=== PATIENT | male | born 1975 | race Caucasian/White ===

== ENCOUNTER 2020-03-02 21:12 | Inpatient (IN) | payer BC, SELFPAY ==
[2020-03-02] VITALS (13 sets, daily range): BP systolic 101–159; BP diastolic 58–107; PULSE 81–123; RESP 16–22; TEMP 36.4; O2SAT 95–99; BMI 27.6
--- NOTE | 2020-03-02 | IR_ITS ---
APPROVED REPORT Patient Location: [facility] Trimmer: PALMER Acuna RT (R) PROCEDURES Left heart catheterization Left ventriculogram Selective coronary angiogram Thrombectomy to the proximal and mid dominant right coronary Drug-eluting stent deployment to the proximal right coronary INDICATION Acute ST elevation inferolateral myocardial infarction, Coronary artery disease Informed consent was obtained prior to the procedure. COMPLICATIONS NONE Estimated Blood Loss: LESS THAN 10 ML TECHNIQUE One percent lidocaine used to anesthetize the right anterior aspect of the wrist. The right radial artery was accessed via the Seldinger technique. A 6 [place] Citizen sheath was placed in the right radial artery. 2.5 mg of verapamil, 800 mcg of nitroglycerin, 1mg Lidocaine and 5000 U Heparin were given through the arterial sheath. A 6 [place] Citizen Poppa catheter was used to perform left heart catheterization left ventriculogram and selective coronary angiogram. Therapeutic heparin was already administered in the emergency department and the ACT was 239 seconds. Additional heparin was administered. The Poppa catheter was used to intubate the right coronary artery and a Choice PT wire was placed distally. A penumbFlockOfBirds aspiration catheter was used to aspirate a large thrombus. Following this a 3 mm x 22 mm resolute Chito stent was deployed at 24 forrest reducing the ruptured plaque to 0%. PHAN-3 flow was present before and after the procedure. At the end the procedure the apparatus was removed the sheath was removed good hemostasis was achieved using TR banding patient was transferred to the postop holding area stable condition. ANGIOGRAPHIC RESULTS The left main artery Has a distal 20% stenosis The left anterior descending artery Has proximal 10% stenoses mid vessel 20% stenoses the first diagonal artery has a proximal 30 to 40% tubular stenosis The circumflex artery Is a nondominant vessel approximately 2.25 mm in diameter with an ostial 40% stenosis and a mid vessel 50% stenosis at a 2 mm segment The right coronary artery Is a dominant vessel with ruptured plaque in the proximal to mid segment accompanied by 2 thrombi. Distal to the RV marginal are 30% stenoses which extend into the distal large branches The MARADIAGA ventriculogram reveals Preserved 55% The left ventricular end-diastolic pressure 15 mmHg IMPRESSION Acute inferolateral myocardial infarction with ST elevation secondary to ruptured plaque in the proximal right coronary artery accompanied by 2 thrombi Successful aspiration thrombectomy followed by drug-eluting stent to the proximal dominant right coronary Persistent moderate stenosis in the small nondominant circumflex artery Preserved ejection fraction Borderline elevated LVEDP PLAN 1. Brilinta and aspirin 2. Supportive care for the next 48 hours while maintaining telemetry 3. Echocardiogram 4. Avoidance of tobacco products 5. Risk factor modification 6. Cardiac rehabilitation Electronically signed by : Narayan Reyna, 03/02/2020 22:19:43
--- NOTE | 2020-03-02 21:07 | ECG_ITS ---
APPROVED REPORT Exam: Resting ECG HR:87 bpm ECG Measurements Heart Rate 87 AXES ID 114 P 43 QRSd 90 QRS 66 QT 362 T 71 QTc 435 Conclusion Normal sinus rhythm ST elevation, consider inferior injury or acute infarct ACUTE CO Abnormal ECG Electronically signed by : Rajendra Beck, 03/03/2020 19:45:34
--- NOTE | 2020-03-02 21:15 | XR_ITS ---
PROCEDURE: XR CHEST PORTABLE CLINICAL HISTORY: chest pain COMPARISON: No exams were available for comparison FINDINGS: The cardiomediastinal silhouette and pulmonary vascularity are within normal limits. The lungs are clear without infiltrates, suspicious nodules, or pleural effusions. No acute bony abnormalities. IMPRESSION: No acute findings. Dictated by: Mike Mccollum MD 03/03/2020 06:10 Mike Mccollum MD in [place] 03/03/2020 06:10
--- NOTE | 2020-03-02 21:17 | PC.NURSE ---
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
--- NOTE | 2020-03-02 21:19 | PC.NURSE ---
Dr Santos speaking with Dr Art
--- NOTE | 2020-03-02 21:22 | PC.NURSE ---
Dr Santos speaking with Dr Gregg for admission
[2020-03-02 21:23] LABS: Chloride 101 mmol/L (98-107); Potassium 3.8 mmoL/L (3.5-5.1); Sodium 139 mmol/L (136-145)
[2020-03-02 21:26] LABS: Anion Gap 13.8 mEq/L (5-15); Basophils # 0.4 K/mm3 (0-0.2); Blood Urea Nitrogen 18 mg/dl (9-20); Carbon Dioxide 28 mmol/L (22.0-30.0); Creatinine Clearance Estimated 91 mL/min (50-200); Eosinophils # 0.3 K/mm3 (0.0-0.4); Eosinophils % 1.5 % (0.1-12.0); Estimated Glomerular Filt Rate 60 ml/min (>60); GFR (African American) 73 ML/MIN (>60); Glucose 125 mg/dl (74-100); Lymphocytes # 2.2 K/mm3 (0.7-4.5); Lymphocytes % 11.7 % (10-50); MANUAL DIFFERENTIAL MANUAL DIFFERENTIAL (MANUAL DIFF); Mean Corpuscular HGB Conc 36.7 g/dL (31.8-35.4); Mean Corpuscular Hemoglobin 30.6 pg (27.0-31.2); Mean Corpuscular Volume 83.6 fl (80-94); Mean Platelet Volume 10.3 fl (7.4-10.4); Monocytes # 0.7 K/mm3 (0.1-1.0); Neutrophils # 14.9 K/mm3 (1.8-7.8); Neutrophils % 80.9 % (37.0-80.0); Platelet Count 276 K/mm3 (142-424); Red Blood Count 5.98 M/mm3 (4.60-6.20); Red Cell Distribution Width 15.4 % (11.5-17.5); White Blood Count 18.4 K/mm3 (4.8-10.8)
[2020-03-02 21:28] LABS: Hemoglobin 18.3 g/dL (14.1-18.0)
--- NOTE | 2020-03-02 21:31 | HMH.EDCP ---
ED Disposition Clinical Impression: ST elevation myocardial infarction (STEMI) Qualifiers: Involved coronary artery: unspecified coronary artery Qualified Code(s): I21.3 - ST elevation (STEMI) myocardial infarction of unspecified site Disposition: Admitted As Inpatient Condition on Discharge: Serious Referrals: Geo Art MD [Primary Care Provider] - - Critical Care Critical Care Time: No Attestation: On 03/02/20, the high probability of a clinically significant, sudden or life threatening deterioration of the following system(s) required my full and direct attention, intervention and personal management. The time I documented below is in addition to time spent performing reported procedures but includes the following listed in this critical care notation. Medical Decision Making - Medical Records Medical records reviewed: Yes: I reviewed the patient's medical records. - Albaro Inquiry Pt receiving controlled substance: No Vital Signs: 03/02/20 21:19 Temperature 97.6 F Temperature Source Oral Pulse Rate [Right] 90 Respiratory Rate 22 Blood Pressure [Right Arm] 159/107 H Blood Pressure Mean [Right Arm] 124 Blood Pressure Source [Right Arm] Automatic Cuff Blood Pressure Position [Right Arm] Supine 02 Sat by Pulse Oximetry 99 Oxygen Delivery Method Room Air - Lab Data Lab results reviewed: Yes: I reviewed the patient's lab results. Lab Results 03/02/20 21:15: WBC 18.4 H, RBC 5.98, Hgb 18.3 H*, Hct 50.0, MCV 83.6, MCH 30.6, MCHC 36.7 H, RDW 15.4, Plt Count 276, MPV 10.3, Neut % (Auto) 80.9 H, Lymph % (Auto) 11.7, Maury % (Auto) 4.0, Eos % (Auto) 1.5, Baso % (Auto) 2.0, Neut # (Auto) 14.9 H, Lymph # (Auto) 2.2, Maury # (Auto) 0.7, Eos # (Auto) 0.3, Baso # (Auto) 0.4 H 03/02/20 21:15: Sodium 139, Potassium 3.8, Chloride 101, Carbon Dioxide 28, Anion Gap 13.8, BUN 18, Creatinine 1.30 H, Estimated Creat Clear 91, Estimated GFR 60, Est GFR ( Amer) 73, Glucose 125 H, Calcium 10.0 Result diagrams: 03/02/20 21:15 01/06/21 21:15 Orders (Tests/Meds): ED MEDICATIONS Generic Name Dose Route Start Last Admin Trade Name Freq PRN Reason Stop Dose Admin Sodium Chloride 1,000 mls @ 999 mls/hr 03/02/20 21:15 03/02/20 21:17 Sod Chlor 0.9% 1000ml Bag IV 03/02/20 22:15 999 mls/hr .Q1H1M CHAR Administration Discontinued Medications Generic Name Dose Route Start Last Admin Trade Name Freq PRN Reason Stop Dose Admin Heparin Sodium (Porcine) 9,000 unit 03/02/20 21:14 03/02/20 21:17 Heparin Sodium 5,000 Unit/Ml Vial IV 03/02/20 21:15 9,000 unit ONCE ONE Administration Ticagrelor 180 mg 03/02/20 21:14 03/02/20 21:16 Ticagrelor 90mg Tablet PO 03/02/20 21:15 180 mg ONCE ONE Administration ORDERS Category Date Time Status XR chest portable Stat Exams 03/02/20 21:15 Taken Basic Metabolic Panel Stat Lab 03/02/20 21:15 Results Complete Blood Count Auto Diff Stat Lab 03/02/20 21:15 Results Troponin I Q3H Lab 03/03/20 00:30 Ordered Troponin I Q3H Lab 03/03/20 03:30 Ordered Troponin I Stat Lab 03/02/20 21:15 Results - Radiology Data #1 Image(s): Chest Image Reviewed: Yes I reviewed the patient's radiology image Preliminary Findings: Abnormal (nonspecific) - ECG Data Tracing #1 Normal Sinus Rhythm: Yes Ischemic changes: acute STEMI - Physician Consults Physician Consulted: romaine Reason -: Pt condition Additional Consult: philomena Reason -: Admission Medical Decision Narrative: acute stemi will go to slab puller - heparin and brilinta given Chest Pain HPI - General Chief Complaint: Chest Pain Stated Complaint: chest pain Time Seen by Provider: 03/02/20 21:20 Mode of Arrival: Ambulatory Source of Information: Patient, Spouse, Medical Record Limitations: No Limitations Description of Symptoms (Recalled from ER Triage Doc. by RN): Pt C/O bilateral chest pain started about 1930 tonight w/ soa and diaphoresis, STEMI Alert called
[2020-03-02 21:32] LABS: Lymphocytes % 13 % (10-50); Monocytes % 5 % (2-9); Neutrophils % 82 % (42-76); Platelet Estimate Normal; RBC Morphology Normal; Total Cells Counted 100
[2020-03-02 21:38] LABS: Troponin I 0.02 ng/ml (0.00-0.034)
--- NOTE | 2020-03-02 21:50 | PC.NURSE ---
Senior Manager Creative Services called and is ready for pt, pt has not had opportunity to speak with Senior Cyber Security Analyst, consent filled out but not signed at this time. Pt transported to Senior Manager Creative Services Via Stretcher with Zolls attached. Transported by Landscape Artist Delia Payne and Yash Kearney.
[2020-03-02 21:52] LABS: Coronavirus 19 IgG Antibody Negative (Negative); Coronavirus 19 IgM Antibody Negative (Negative)
--- NOTE | 2020-03-02 21:56 | PC.NURSE ---
[address] Reyna by Dr Santos and STEMI Alert called
--- NOTE | 2020-03-02 22:07 | PC.NURSE ---
on arrival pt states he has bilat chest pain with SOA and diaphoresis starting at 1930 [place] after karate practice and continued to get worse
[2020-03-02 22:44] LABS: CATHL Activated Clotting Time 236 SEC (74-125)
[2020-03-02 22:45] LABS: CATHL Activated Clotting Time 237 SEC (74-125)
--- NOTE | 2020-03-02 23:03 | PC.NURSE ---
pt arrived via stretcher from blood and plasma laboratory assistant
[2020-03-03] VITALS (16 sets, daily range): BP systolic 104–163; BP diastolic 65–97; PULSE 69–96; RESP 10–26; TEMP 36.6–36.8; O2SAT 94–99; BMI 27.6
--- NOTE | 2020-03-03 00:25 | PC.NURSE ---
He is A&Ox4 with some confusion r/t anesthesia. He denies pain. VSS. Radialband in place. Capillary refill <3. Positive radial and pedal pulses. He is on oxygen per request of Dr. Reyna per report from Speedy Clement RN. Pt came to floor with non-rebreather but requested that it be removed. He is currently on 2LPM n/c. His verified that he is not on any home medications and was present t/o admission.
--- NOTE | 2020-03-03 03:00 | PC.NURSE ---
Attempted to remove air from radial band and radial site started bleeding. Increased pressure placed on site and site has stopped bleeding.
[2020-03-03 06:25] LABS: Basophils # 0.1 K/mm3 (0-0.2); Basophils % 0.8 % (0.1-2.0); Eosinophils # 0.2 K/mm3 (0.0-0.4); Eosinophils % 2.1 % (0.1-12.0); Hematocrit 44.3 % (42.0-52.0); Lymphocytes # 3.3 K/mm3 (0.7-4.5); Lymphocytes % 31.4 % (10-50); Mean Corpuscular HGB Conc 32.4 g/dL (31.8-35.4); Mean Corpuscular Hemoglobin 28.5 pg (27.0-31.2); Mean Corpuscular Volume 87.8 fl (80-94); Mean Platelet Volume 7.2 fl (7.4-10.4); Monocytes # 0.7 K/mm3 (0.1-1.0); Monocytes % 6.6 % (1.7-9.3); Neutrophils # 6.3 K/mm3 (1.8-7.8); Neutrophils % 59.1 % (37.0-80.0); Platelet Count 224 K/mm3 (142-424); Red Blood Count 5.04 M/mm3 (4.60-6.20); Red Cell Distribution Width 13.5 % (11.5-17.5); White Blood Count 10.6 K/mm3 (4.8-10.8)
[2020-03-03 06:40] LABS: Anion Gap 8.8 mEq/L (5-15); Blood Urea Nitrogen 16 mg/dl (9-20); Carbon Dioxide 24 mmol/L (22.0-30.0); Chloride 108 mmol/L (98-107); Chol/HDL Ratio 6.8 (1-3.5); Cholesterol 176 mg/dl (140-200); Creatinine Clearance Estimated 118 mL/min (50-200); Estimated Glomerular Filt Rate 82 ml/min (>60); GFR (African American) 99 ML/MIN (>60); Glucose 124 mg/dl (74-100); HDL Cholesterol 26 mg/dl (40-60); Potassium 3.8 mmoL/L (3.5-5.1); Sodium 137 mmol/L (136-145); Triglycerides 262 mg/dl (30-150); VLDL Cholesterol 52 mg/dL (0-40)
[2020-03-03 06:43] LABS: Calcium 8.5 mg/dl (8.4-10.2)
[2020-03-03 06:54] LABS: Hemoglobin 14.4 g/dL (14.1-18.0)
--- NOTE | 2020-03-03 07:49 | HMH.CNCARD ---
History of Present Illness Consult date: 03/03/20 Requesting physician: Geo Art Consult reason: chest pain Chief complaint: STEMI Additional Medical History:: 1. Coronary artery disease A. History of myocardial infarction, status post coronary stenting, age 36, Dr. Garcia, [place], [place] B. Inferior STEMI, status post thrombectomy and coronary stenting of the right coronary artery, 03/02/2020, Dr. Narayan Reyna, [place], [place]. ANGIOGRAPHIC RESULTS The left main artery Has a distal 20% stenosis The left anterior descending artery Has proximal 10% stenoses mid vessel 20% stenoses the first diagonal artery has a proximal 30 to 40% tubular stenosis The circumflex artery Is a nondominant vessel approximately 2.25 mm in diameter with an ostial 40% stenosis and a mid vessel 50% stenosis at a 2 mm segment The right coronary artery Is a dominant vessel with ruptured plaque in the proximal to mid segment accompanied by 2 thrombi. Distal to the RV marginal are 30% stenoses which extend into the distal large branches The MARADIAGA ventriculogram reveals Preserved 55% The left ventricular end-diastolic pressure 15 mmHg IMPRESSION Acute inferolateral myocardial infarction with ST elevation secondary to ruptured plaque in the proximal right coronary artery accompanied by 2 thrombi Successful aspiration thrombectomy followed by drug-eluting stent to the proximal dominant right coronary Persistent moderate stenosis in the small nondominant circumflex artery Preserved ejection fraction Borderline elevated LVEDP 2. History of hypertension 3. Hyperlipidemia 4. Remote tobacco use, discontinued 1 year ago, previously 1.5 to 2 packs/day since age 15 5. History of GERD History of present illness: 44-year-old white male with history of prior MT was at [employer] [facility] last evening when he developed sudden chest discomfort that would not resolve with rest. Symptoms persisted upon returning home which prompted him to come to the ER for evaluation. EKG showed elevated ST segments inferiorly patient was taken urgently to the cardiac Instructional Design Technologist with subsequent thrombectomy and coronary stenting to the right coronary artery. This a.m. patient denies any chest pain, pressure or tightness. He denies tobacco use or illegal drug use. No history of diabetes or family history of early coronary artery disease. He relates he is on no medication except an aspirin when he can remember to take it. [facility] History Medical History: Reports:: Coronary Artery Disease, Gastroesophageal Reflux Disease(GERD), Hyperlipidemia, Hypertension, Myocardial Infarction Denies:: Cancer, Diabetes Mellitus Type 1, Diabetes Mellitus Type 2, Internal Pacemaker, MRSA *Have you ever received a pneumonia vaccine?: No *Have you received a flu vaccine this season?: No Other Surgeries: Yes: Coronary Stent. No: Pacemaker Amputation: No Fractures: No - *Social History Last grade of school completed: Some college Smoking Status: Former smoker Tobacco Type: cigarettes # Packs/Day (cigarettes): 2 #Yrs smoked (if former smoker): 28 Alcohol Intake: never *Occupational Status:: employed Housing: house Household Members: spouse *Travel in the last 8 weeks: None Family Hx:: Coronary Artery Disease, Thyroid Disorder, Alcoholism Meds Home Medications Medication Instructions Recorded Confirmed Type No Known Home Medications 03/02/20 03/02/20 History Allergies Allergy/AdvReac Type Severity Reaction Status Date / Time No Known Allergies Allergy Verified 03/02/20 23:13 Exam Vital signs and Labs for Last 24 Hours: Temp Pulse Resp BP Pulse Ox 98.0 F 96 H 16 163/84 H 98 03/03/20 04:00 03/03/20 04:00 03/03/20 02:40 03/03/20 04:00 03/03/20 04:00 Laboratory Results - last 24 hr 03/02/20 21:15: WBC 18.4 H, RBC 5.98, Hgb 18.3 H*, Hct 50.0, MCV 83.6, MCH 30.6, MCHC 36.7 H, RDW 15.4, Plt Count 276, MPV 10.3, Neut % (Au
--- NOTE | 2020-03-03 07:52 | HMH.PHAVTE ---
[facility] Pharmacy VTE Monitoring - Patient Demographics Admission date: 03/02/20 Report Date: 03/03/20 Time: 07:52 Allergies/Adverse Reactions: Patient Allergies No Known Allergies Allergy (Verified 03/02/20 23:13) Height: 1.78 m Weight: 87.543 kg Patient Problems: Current Active Problems ST elevation myocardial infarction (STEMI) (Acute) - VTE Risk Labs: VTE Related Lab Results Hgb 14.4 g/dL (14.1-18.0) D 03/03/20 05:56 Hct 44.3 % (42.0-52.0) 03/03/20 05:56 Plt Count 224 K/mm3 (142-424) 03/03/20 05:56 BUN 16 mg/dl (9-20) 03/03/20 05:56 Creatinine 1.00 mg/dl (0.66-1.25) D 03/03/20 05:56 Estimated Creat Clear 118 mL/min (50-200) 03/03/20 05:56 Was VTE Risk Assessment Performed: No VTE Score: 2 VTE Risk Level: Very Low Risk - Prophylaxis VTE Prophylaxis Ordered?: Yes Types of VTE Prophylaxis: TEDS Knee High Location of Applied Device: Bilateral Lower Extremeties
--- NOTE | 2020-03-03 08:00 | CA_ITS ---
APPROVED REPORT EXAM: Comprehensive 2D, Doppler, and color-flow Echocardiogram Client Support Consultant: Dominique Goodwin RVT Ht: 5 ft 10 in Wt: 193lbs BSA: 2.06 BP: 159/107 mmHg Indications: CP,STEMI,CAD,GERD,HTN,HLD 2D Dimensions LVOT 2.13 cm (M/F) 1.5-2.5 M-Mode Dimensions RVDd 2.14 cm (0.9-2.6) LA Diam 3.57 cm (1.9-4.0) LVDd 4.64 cm (3.5-5.7) Ao Diam 2.81 cm (2.0-3.7) LVDs 3.60 cm (3.5-5.7) IVSd 1.64 cm (0.6-1.1) PWd 1.11 cm (0.6-1.1) EF (Teich) 53.80% FS 27.90% EDV (Teich) 117.70 mL ESV (Teich) 54.40 mL LV Diastology E Decel Time 150.00 (160-240 msec) E/A Ratio 0.6 MED E' 7.20 (< 7 cm/sec) E'/MED E' Ratio 6.89 (>14) LAT E' 6.60 (<10 cm/sec) E/LAT E' Ratio 7.52 (>14) Mitral Valve MV E Max Preston. 50.00 (40-130 cm/s) MV A Velocity 78.00 (40-130 cm/s) E/A Ratio 0.64 MV Decel. Time 150.00 (160-240 ms) MV PHT 44.00 ms Pulmonary Valve PV Peak Velocity 87.00 (50-150 cm/s) Left Ventricle Left atrium is mildly enlarged, left ventricle is normal size, mild concentric left ventricular hypertrophy, visually estimated ejection fraction 45 to 50%, there is mild hypokinesis involving the basal septum and inferior wall. Diastolic parameters are inconclusive. Right Ventricle Right atrium and right ventricle are normal size and contractility. Aortic Valve Aortic valve is minimally thickened and calcified, there is no aortic stenosis or aortic insufficiency. Mitral Valve Mitral valve is grossly normal, there is mild mitral regurgitation. Tricuspid Valve Tricuspid valve is grossly normal, there is mild tricuspid regurgitation, tricuspid regurgitation jet velocity is inadequate for calculation of the right ventricular systolic pressure. Pulmonic Valve Pulmonic valve is poorly visualized. Great Vessels Aortic root is normal size. Pericardium No significant pericardial effusion noted. Conclusion 1. Mildly enlarged left atrium, normal left ventricular size, mild concentric left ventricular hypertrophy, visually estimated ejection fraction 40 to 45% with segmental wall motion abnormality described above, diastolic parameters are inconclusive. 2. Mild mitral and tricuspid regurgitation. 3. No significant pericardial effusion noted. Electronically signed by : Dakota Agrawal, 03/03/2020 15:03:32
--- NOTE | 2020-03-03 08:52 | HMH.HP ---
*Admission Date: 03/02/20 *Chief complaint: chest pain *History of present illness: Mr Penny is a 44-year-old white male with history of prior MN with 1 stent placed back [place] [address] Garcia. He was at [employer] [facility] last evening when he developed sudden chest discomfort that would not resolve with rest. He states it felt like something was squeezing the lower part of his chest and he had some pain that radiated into her bilateral gums. His pain did not resolve and was similar to the pain he had with his last MN, therefore he came to the ER for evaluation. EKG showed elevated ST segments inferiorly and the patient was taken urgently to the cardiac Concrete Spreader with subsequent thrombectomy and coronary stenting to the right coronary artery. This morning he denies any chest pain, pressure or tightness. He states he quit smoking about a year ago. He has no history of diabetes but he did say that his mother had coronary artery disease. He used to be on 5 medications after his last MN, but it has been at least a year and a half since he has taken any of them. When Dr. Garcia left, he no longer followed up in his office. He does take a full-strength aspirin daily. [facility] History I have reviewed the patient's past medical history: Yes Medical History: Reports:: Coronary Artery Disease, Gastroesophageal Reflux Disease(GERD), Hyperlipidemia, Hypertension, Myocardial Infarction Denies:: Cancer, Diabetes Mellitus Type 1, Diabetes Mellitus Type 2, Internal Pacemaker, MRSA *Have you ever received a pneumonia vaccine?: No *Have you received a flu vaccine this season?: No Other Surgeries: Yes: Coronary Stent. No: Pacemaker Amputation: No Fractures: No - *Social History Last grade of school completed: Some college Smoking Status: Former smoker Tobacco Type: cigarettes # Packs/Day (cigarettes): 2 #Yrs smoked (if former smoker): 28 Alcohol Intake: never *Occupational Status:: employed Housing: house Household Members: spouse *Travel in the last 8 weeks: None Family Hx:: Coronary Artery Disease, Thyroid Disorder, Alcoholism Review of Systems - Constitutional Denies fever(s) - Eyes Denies blurry vision, Denies double vision - ENT Denies nasal congestion, Denies sore throat - *Cardiovascular Reports chest pain, Reports shortness of breath, Reports radiating jaw, neck or arm pain - *Respiratory Denies cough, Denies shortness of breath - *Gastrointestinal Reports nausea, Denies abdominal pain, Denies loose stools, Denies vomiting - *Genitourinary Denies difficulty urinating, Denies painful urination - *Musculoskeletal Denies joint pain - *Neurologic Denies headache(s), Denies weakness Meds Home Medications Medication Instructions Recorded Confirmed Type No Known Home Medications 03/02/20 03/02/20 History Allergies Allergy/AdvReac Type Severity Reaction Status Date / Time No Known Allergies Allergy Verified 03/02/20 23:13 Exam Vital signs and Labs for Last 24 Hours: Temp Pulse Resp BP Pulse Ox 98.0 F 96 H 16 163/84 H 98 03/03/20 04:00 03/03/20 04:00 03/03/20 02:40 03/03/20 04:00 03/03/20 04:00 Laboratory Results - last 24 hr 03/02/20 21:15: WBC 18.4 H, RBC 5.98, Hgb 18.3 H*, Hct 50.0, MCV 83.6, MCH 30.6, MCHC 36.7 H, RDW 15.4, Plt Count 276, MPV 10.3, Neut % (Auto) 80.9 H, Lymph % (Auto) 11.7, [place] % (Auto) 4.0, Eos % (Auto) 1.5, Baso % (Auto) 2.0, Neut # (Auto) 14.9 H, Lymph # (Auto) 2.2, [place] # (Auto) 0.7, Eos # (Auto) 0.3, Baso # (Auto) 0.4 H, Total Counted 100, Neutrophils % (Manual) 82 H, Lymphocytes % (Manual) 13, Monocytes % (Manual) 5, Platelet Estimate Normal, RBC Morphology Normal 03/02/20 21:15: Sodium 139, Potassium 3.8, Chloride 101, Carbon Dioxide 28, Anion Gap 13.8, BUN 18, Creatinine 1.30 H, Estimated Creat Clear 91, Estimated GFR 60, Est GFR ( Amer) 73, Glucose 125 H, Calcium 10.0, Troponin I 0.02 03/02/20 21:15: SARS-CoV-2 IgG Ab (Rapid) Negative, SARS-CoV-2 IgM Ab (Rapi
[2020-03-04] VITALS (10 sets, daily range): BP systolic 102–132; BP diastolic 69–85; PULSE 60–79; RESP 14–20; TEMP 36.4–36.7; O2SAT 93–98; BMI 28.8
--- NOTE | 2020-03-04 04:18 | PC.NURSE ---
Pt has rested off an on this shift. C/o some epigastric pain earlier in the shift, medicated per APR with Lortab, no further complaints. Right radial site dressing remains C/D/I. No bruising noted. LS CTA, denies CP or SOA. Has remained on RA all night. BS+x4. Pt up to bathroom to void without difficulty, no BM noted this shift. VSS, remains NSR on telemetry, will continue to monitor.
--- NOTE | 2020-03-04 08:38 | HMH.PNCARD ---
Subjective Date: 03/04/20 Time: 08:38 Principal diagnosis: STEMI Interval history: 44-year-old white male in bed in no acute distress. Epigastric discomfort during the night that resolved with Lortab. He does have some improving discomfort of the right wrist and hand. Exam Vital signs and Labs for Last 24 Hours: Temp Pulse Resp BP Pulse Ox 97.9 F 67 14 111/69 94 L 03/04/20 04:00 03/04/20 06:00 03/04/20 06:00 03/04/20 06:00 03/04/20 06:00 I & O for Last 24 hours: Intake & Output 03/01/20 03/02/20 03/03/20 03/04/20 11:59 11:59 11:59 11:59 Intake Total 1653 / 1653 795 / 795 Output Total 800 / 800 Balance 1653 / 1653 -5 / -5 Weight 192 lb 15.988 oz 201 lb 8 oz - Constitutional no acute distress - *Routine HEENT Exam Head: Present: normocephalic Eye: Present: EOMI, PERRL ENT: Present: mucous membranes moist - *Routine Neck Exam Present: supple. Absent: lymphadenopathy - *Routine Respiratory Exam Present: CTA bilaterally - *Routine Cardiovascular Exam Present: RRR - *Routine Abdominal Exam Present: soft, normoactive bowel sounds. Absent: tenderness - *Routine Extremities Exam Absent: cyanosis, clubbing, edema - *Routine Skin Exam Present: warm. Absent: rash - *Routine Neurological Exam Present: alert, oriented X3 Progress Note: A&P (1) ST elevation myocardial infarction (STEMI) Status: Acute (2) Hypertension Status: Acute (3) Hyperlipidemia Status: Acute (4) Ex-smoker for less than 1 year Status: Acute Assessment and Plan for All Diagnoses:: Patient comfortable at this time. Encouraged him to ambulate today and if no further discomfort could be discharged home later this evening. Home medication recommendations Aspirin 81 mg daily Brilinta 90 mg twice daily Metoprolol succinate XL 25 mg daily Lisinopril 10 mg daily Atorvastatin 80 mg daily Nitroglycerin sublingual as needed for possible coronary spasm related to coronary stenting. Follow-up in our office in 1 week Patient should be off work for at least 2 weeks before consideration to return to work.
--- NOTE | 2020-03-04 08:43 | HMH.ACPN2 ---
Internal Medicine - PN: Subj *Date: 03/04/20 *Time: 08:43 Interval history: Patient is feeling well this morning. He states he did have an episode around 2 or 3 AM of some chest pressure. He was given Lortab and it subsided and he fell asleep. He denies any pain or pressure this morning. He is able to eat. Exam Vital signs and Labs for Last 24 Hours: Temp Pulse Resp BP Pulse Ox 98.1 F 79 20 109/72 L 95 03/04/20 08:00 03/04/20 08:00 03/04/20 08:00 03/04/20 08:00 03/04/20 08:00 I & O for Last 24 hours: Intake & Output 03/01/20 03/02/20 03/03/20 03/04/20 11:59 11:59 11:59 11:59 Intake Total 1653 / 1653 795 / 795 Output Total 800 / 800 Balance 1653 / 1653 -5 / -5 Weight 192 lb 15.988 oz 201 lb 8 oz - Constitutional no acute distress - *Routine Respiratory Exam Present: CTA bilaterally - *Routine Cardiovascular Exam Present: RRR - *Routine Abdominal Exam Present: soft, normoactive bowel sounds. Absent: tenderness - *Routine Extremities Exam Absent: cyanosis, clubbing, edema - *Routine Skin Exam Present: warm. Absent: rash - *Routine Neurological Exam Present: alert, oriented X3 Assessment and Plan (1) ST elevation myocardial infarction (STEMI) Status: Acute Qualifiers: Qualified Code(s): I21.3 - ST elevation (STEMI) myocardial infarction of unspecified site Category: Medical Code(s): I21.3 - ST elevation (STEMI) myocardial infarction of unspecified site (2) Hypertension Status: Acute Category: Medical Code(s): I10 - Essential (primary) hypertension (3) Hyperlipidemia Status: Acute Category: Medical Code(s): E78.5 - Hyperlipidemia, unspecified (4) Ex-smoker for less than 1 year Status: Acute Category: Social Hx Code(s): Z78.9 - Other specified health status - Assessment and plan all Dx Assessment and Plan for all problems:: Cardiology has seen the patient this morning. He should be able to be discharged later on today as they wanted to keep him for 48 hours of monitoring. He will need to follow-up in their office.
--- NOTE | 2020-03-04 20:16 | PC.NURSE ---
PT IS RESTING IN BED. NO COMPLAINTS OF DISCOMFORT. PT HAS BEEN WAITING PATIENTLY TO GET DISCHARGED. PT HAS UNHOOKED HIMSELF FROM THE MONITORS SEVERAL TIMES THIS SHIFT TO GET UP AND AMBULATE IN THE ROOM. ALERT AND ORIENTED X4. VSS. EATING AND DRINKING WELL. LUNG SOUNDS CLEAR. BOWEL SOUNDS NORMAL. ABDOMEN SOFT/NON TENDER. DRESSING TO THE RT RADIAL SITE C/D/I. REPORT HANDOFF TO IDANIA CROWLEY RN.
--- NOTE | 2020-03-04 20:28 | PC.NURSE ---
patient discharged and off the floor at 20:24.
--- NOTE | 2020-03-05 19:19 | HMH.DCSUM ---
General - General Admission date:: 03/02/20 Discharge date: 03/04/20 HPI HPI: Mr Chambres is a 44-year-old white male with history of prior AK with 1 stent placed back in [address] Garcia. He was at [facility] last evening when he developed sudden chest discomfort that would not resolve with rest. He states it felt like something was squeezing the lower part of his chest and he had some pain that radiated into her bilateral gums. His pain did not resolve and was similar to the pain he had with his last AK, therefore he came to the ER for evaluation. EKG showed elevated ST segments inferiorly and the patient was taken urgently to the cardiac [facility] with subsequent thrombectomy and coronary stenting to the right coronary artery. This morning he denies any chest pain, pressure or tightness. He states he quit smoking about a year ago. He has no history of diabetes but he did say that his mother had coronary artery disease. He used to be on 5 medications after his last AK, but it has been at least a year and a half since he has taken any of them. When Dr. Garcia left, he no longer followed up in his office. He does take a full-strength aspirin daily. Hospital Course Hospital Course: The patient was kept for monitoring after his stenting for [address] Gregg did discuss the importance with he and his of taking his medications and following up in the office. He had an echo showing an EF of 40 to 45%. His chest pain did improve after his cath, however he had some epigastric discomfort that resolved with Lortab the night after the cath. He also complained of some discomfort in his wrist. Cardiology did provide subingual nitroglycerin as needed for possible coronary spasm. They felt he was stable to be discharged home on 81 mg of aspirin, 90 mg of Brilinta twice daily, metoprolol succinate 25 daily, lisinopril 10 mg daily, and atorvastatin 80 mg daily. They wanted him to remain off work for 2 weeks and follow-up in their office in 1 week. Objective Vital signs: Temp Pulse Resp BP Pulse Ox 98.1 F 68 18 132/85 98 03/04/20 18:00 03/04/20 18:00 03/04/20 18:00 03/04/20 18:00 03/04/20 18:00 Narrative: - Constitutional no acute distress - *Routine HEENT Exam Head: Present: normocephalic Eye: Present: EOMI, PERRL ENT: Present: mucous membranes moist - *Routine Neck Exam Present: supple. Absent: lymphadenopathy - *Routine Respiratory Exam Present: CTA bilaterally - *Routine Cardiovascular Exam Present: RRR - *Routine Abdominal Exam Present: soft, normoactive bowel sounds. Absent: tenderness - *Routine Extremities Exam Absent: cyanosis, clubbing, edema - *Routine Skin Exam Present: warm. Absent: rash - *Routine Neurological Exam Present: alert, oriented X3 DS: Diagnosis - Discharge Diagnosis (1) ST elevation myocardial infarction (STEMI) Status: Acute (2) Hypertension Status: Acute (3) Hyperlipidemia Status: Acute (4) Ex-smoker for less than 1 year Status: Acute Discharge Plan - Patient Discharge Instructions ACTIVITY: Limited activity DIET: low fat, low cholesterol Patient Instructions: DI for Heart Attack, Heart Attack, Cardiac Catheterization - Follow up Plan Follow up with: Geo Art MD [Primary Care Provider] - 03/09/20 Narayan Reyna MD [Staff Physician] - 1 week Disposition: Home, Self-Longterm Medications: Home Medications Medication Instructions Recorded Confirmed Type Aspirin [Aspirin 81mg chewable 81 mg PO DAILY tab.chew 03/04/20 Rx tab] Atorvastatin Calcium [Lipitor 40mg 80 mg PO HS #30 tab 03/04/20 Rx Tablet*] Metoprolol Succinate [Toprol XL 25 mg PO DAILY #30 tab.er.24h 03/04/20 Rx 25mg tablet] Ticagrelor [Brilinta 90mg 90 mg PO BID #60 tab 03/04/20 Rx Tablet] lisinopriL [Zestril 10mg Tab] 10 mg PO DAILY #30 tab 03/04/20 Rx Prescriptions/Medication Reconci
--- NOTE | 2020-03-08 11:33 | HMH.PHACLD ---
Vishal Chambers has received discharge medication counseling on the following medications: PATIENT DISCHARGED ON ASPIRIN 81 MG DAILY, ATORVASTATIN 80 MG HS, LISINOPRIL 10 MG DAILY, METOPROLOL SUCCINATE 25 MG DAILY AND BRINLINTA 90 MG BID.
== END 2020-03-04 20:20 | disposition home or self-care (01) | DRG 247 ==
LOC: ER 21:37 → CATHLAB 22:13 → 2ND 22:19
PROVIDERS: Internal Medicine; Admitting Provider Family Medicine; Emergency Provider Emergency Medicine; PCP Family Medicine; Visit Provider Family Medicine
PROC: 027034Z Dilation of Coronary Artery, One Artery with Drug-eluting Intraluminal Device, Percutaneous Approach (ICD-10-PCS; principal; 2020-03-02 21:30)
DX: I21.19 ST elevation (STEMI) myocardial infarction involving other coronary artery of inferior wall (principal); I10 Essential (primary) hypertension; I25.10 Atherosclerotic heart disease of native coronary artery without angina pectoris; Z87.891 Personal history of nicotine dependence; I25.2 Old myocardial infarction; Z95.5 Presence of coronary angioplasty implant and graft; Z79.899 Other long term (current) drug therapy
CPT/HCPCS: 71045; 80048; 80061; 83735; 84484; 85007; 85025; 85347; 86328; 92941; 93005; 93306; 93458; 96365; 96375; 99152; 99153; 99284; C1725; C1769; C1876; C9606; J1644; J2405; Q9967

== ENCOUNTER → 2020-03-08 12:18 | Outpatient (CLI) | payer BC, SELFPAY ==
[2020-03-08 13:16] LABS: Basophils # 0.1 K/mm3 (0-0.2); Basophils % 1.2 % (0.1-2.0); Eosinophils # 0.2 K/mm3 (0.0-0.4); Eosinophils % 2.3 % (0.1-12.0); Hematocrit 56.8 % (42.0-52.0); Lymphocytes # 3.3 K/mm3 (0.7-4.5); Lymphocytes % 33.4 % (10-50); Mean Corpuscular HGB Conc 33.8 g/dL (31.8-35.4); Mean Corpuscular Hemoglobin 30.5 pg (27.0-31.2); Mean Corpuscular Volume 90.4 fl (80-94); Mean Platelet Volume 7.4 fl (7.4-10.4); Monocytes # 0.6 K/mm3 (0.1-1.0); Monocytes % 5.5 % (1.7-9.3); Neutrophils # 5.8 K/mm3 (1.8-7.8); Neutrophils % 57.7 % (37.0-80.0); Platelet Count 278 K/mm3 (142-424); Red Blood Count 6.29 M/mm3 (4.60-6.20); Red Cell Distribution Width 14.1 % (11.5-17.5)
[2020-03-08 13:18] LABS: Hemoglobin 19.2 g/dL (14.1-18.0)
[2020-03-08 14:10] LABS: Chloride 101 mmol/L (98-107); Potassium 4.4 mmoL/L (3.5-5.1); Sodium 138 mmol/L (136-145)
[2020-03-08 14:13] LABS: Anion Gap 15.4 mEq/L (5-15); Blood Urea Nitrogen 20 mg/dl (9-20); Calcium 9.9 mg/dl (8.4-10.2); Carbon Dioxide 26 mmol/L (22.0-30.0); Estimated Glomerular Filt Rate 66 ml/min (>60); GFR (African American) 80 ML/MIN (>60); Glucose 111 mg/dl (74-100)
== END ==
PROVIDERS: PCP Emergency Medicine; Visit Provider Emergency Medicine
DX: D75.1 Secondary polycythemia (principal)
CPT/HCPCS: 36415; 80048; 85025

== ENCOUNTER 2020-03-08 14:18 | Outpatient (CLI) | payer BC, SELFPAY ==
[2020-03-08 15:00] VITALS: BP 120/78; PULSE 71; RESP 20; TEMP 36.9; O2SAT 95
--- NOTE | 2020-03-08 15:27 | PC.NURSE ---
PT WAS HERE TODAY FOR FOLLOW UP WITH MD IN CARDIOLOGY CLINIC. LABS WERE CHECKED AND HGB WAS ELEVATED AND PATIENT WAS SENT TO OUR DEPARTMENT FOR THERAPUTIC PHLEBOTOMY
== END 2020-03-08 15:15 | disposition home or self-care (01) ==
LOC: INF 14:18
PROVIDERS: PCP Family Medicine; Visit Provider Physician Assistant
DX: D75.1 Secondary polycythemia (principal)
CPT/HCPCS: 99195

== ENCOUNTER → 2020-03-11 15:14 | Outpatient (CLI) | payer BC, SELFPAY ==
--- NOTE | 2020-03-11 15:14 | US_ITS ---
PROCEDURE: US KIDNEY CLINICAL INDICATION: D75.1 - Secondary polycythemia Polycythemia COMPARISON: No exams were available for comparison FINDINGS: The right kidney is 12 x 6 x the 6 cm. There is a 3 cm cyst in the mid polar region of the right kidney. No hydronephrosis. No other significant anomalies. The left kidney is normal at 11 x 6 by 5 cm. No hydronephrosis. Borderline splenomegaly at 13 cm IMPRESSION: Right renal cyst otherwise negative bilateral renal ultrasound. Dictated by: Mike Mccollum MD 03/11/2020 16:31 Mike Mccollum MD in [place] 03/11/2020 16:31
== END ==
PROVIDERS: PCP Family Medicine; Visit Provider Physician Assistant
DX: D75.1 Secondary polycythemia (principal); E78.5 Hyperlipidemia, unspecified; I10 Essential (primary) hypertension
CPT/HCPCS: 76770

== ENCOUNTER → 2020-03-15 14:24 | Outpatient (CLI) | payer BC, SELFPAY ==
[2020-03-15 14:54] LABS: Basophils # 0.1 K/mm3 (0-0.2); Eosinophils # 0.2 K/mm3 (0.0-0.4); Eosinophils % 1.7 % (0.1-12.0); Hematocrit 51.1 % (42.0-52.0); Hemoglobin 17.7 g/dL (14.1-18.0); Lymphocytes # 2.8 K/mm3 (0.7-4.5); Lymphocytes % 22.8 % (10-50); Mean Corpuscular HGB Conc 34.6 g/dL (31.8-35.4); Mean Corpuscular Hemoglobin 30.7 pg (27.0-31.2); Mean Corpuscular Volume 88.7 fl (80-94); Mean Platelet Volume 7.3 fl (7.4-10.4); Monocytes # 0.7 K/mm3 (0.1-1.0); Monocytes % 5.8 % (1.7-9.3); Neutrophils # 8.6 K/mm3 (1.8-7.8); Neutrophils % 68.8 % (37.0-80.0); Platelet Count 293 K/mm3 (142-424); Red Blood Count 5.76 M/mm3 (4.60-6.20); Red Cell Distribution Width 14.1 % (11.5-17.5); White Blood Count 12.4 K/mm3 (4.8-10.8)
[2020-03-15 15:57] LABS: Chloride 101 mmol/L (98-107); Sodium 136 mmol/L (136-145)
[2020-03-15 15:58] LABS: Potassium 4.9 mmoL/L (3.5-5.1)
[2020-03-15 16:00] LABS: Alanine Aminotransferase 53 U/L (12-78); Alkaline Phosphatase 86 U/L (38-126); Anion Gap 12.9 mEq/L (5-15); Aspartate Amino Transferase 34 U/L (17-59); Bilirubin,Direct 0.3 mg/dl (0.0-0.4); Bilirubin,Indirect 0.5 mg/dL (0.0-0.9); Bilirubin,Total 0.8 mg/dl (0.2-1.3); Bilirubin,Unconjugated 0.5 mg/dL (0.0-1.1); Blood Urea Nitrogen 14 mg/dl (9-20); Calcium 9.8 mg/dl (8.4-10.2); Carbon Dioxide 27 mmol/L (22.0-30.0); Cholesterol 140 mg/dl (140-200); Estimated Glomerular Filt Rate 82 ml/min (>60); GFR (African American) 99 ML/MIN (>60); Glucose 99 mg/dl (74-100); Triglycerides 134 mg/dl (30-150); VLDL Cholesterol 27 mg/dL (0-40)
[2020-03-15 16:01] LABS: Albumin Level 4.8 g/dl (3.5-5.0); Chol/HDL Ratio 3.9 (1-3.5); HDL Cholesterol 36 mg/dl (40-60); Total Protein,Serum 7.7 g/dl (6.3-8.2)
[2020-03-15 16:12] LABS: Direct LDL Cholesterol 81.87 mg/dL (100-129)
== END ==
PROVIDERS: Visit Provider Urology
DX: D75.1 Secondary polycythemia (principal); E78.5 Hyperlipidemia, unspecified; I25.10 Atherosclerotic heart disease of native coronary artery without angina pectoris
CPT/HCPCS: 36415; 80048; 80061; 80076; 85025

== ENCOUNTER → 2020-03-22 13:51 | Outpatient (CLI) | payer BC, SELFPAY ==
--- NOTE | 2020-03-22 13:52 | CA_ITS ---
APPROVED REPORT Laterality: Unilateral right Solar Business Developer: Kaycee Elliott RT(R) Symptoms History of Smoking Risk Factors Hypertension: Hyperlipidemia CAD Comments Heart cath done 03/02/20 with right radial access. A knot appeared 03/19/20 at the cath site on right wrist. Findings No pseudoaneurysm seen in right radial artery. No AV fistula seen in right radial artery or veins. Occlusive arterial thrombus seen in right radial artery. Conclusion No pseudoaneurysm seen in right radial artery. No AV fistula seen in right radial artery or veins. Occlusive arterial thrombus seen in right radial artery. Electronically signed by : Mike Mccollum MD 03/22/2020 16:30:09
== END ==
PROVIDERS: PCP Family Medicine; Visit Provider Nurse Practitioner Family
DX: I77.0 Arteriovenous fistula, acquired (principal); Z98.890 Other specified postprocedural states
CPT/HCPCS: 93931

== ENCOUNTER → 2020-03-23 08:40 | Outpatient (CLI) | payer BC, SELFPAY ==
--- NOTE | 2020-03-23 09:05 | CT_ITS ---
PROCEDURE: CT ABDOMEN W CON CLINICAL HISTORY: polycythemia COMPARISON: No exams were available for comparison TECHNIQUE: Axial images obtained with sagittal and coronal reformats. All CT scans at the facility use one or more dose reduction, viz: automated exposure control, ma/kV adjustment per patient size (including targeted exams where dose is matched to indication, i.e. head), or iterative reconstruction technique. FINDINGS: Fatty liver. No focal liver lesions evident. The gallbladder, spleen, adrenal glands, and pancreas have an unremarkable appearance. There are small bilateral renal cysts the largest on the right measuring 2.6 cm. Scattered small nodes are present in the mesenteries. A prominent periportal node is present at 2.9 by 1.2 cm. A small splenule is present anterior to the spleen measuring 17 mm. No acute bony finding. IMPRESSION: No acute finding. Nonspecific mildly prominent portal lymph node at 2.9 x 1.2 cm. Consider 3 month follow-up to confirm stability Dictated by: Mkie Mccollum MD 03/24/2020 07:36 Mike Mccollum MD in [place] 03/24/2020 07:36
--- NOTE | 2020-03-23 09:05 | CT_ITS ---
PROCEDURE: CT CHEST W CON CLINCAL INDICATION: polycythemia Heart disease COMPARISON: No exams were available for comparison TECHNIQUE: IV Contrast: 75ml Isovue 370 Axial images obtained with sagittal and coronal reformats. All CT scans at the facility use one or more dose reduction, viz: automated exposure control, ma/kV adjustment per patient size (including targeted exams where dose is matched to indication, i.e. head), or iterative reconstruction technique. FINDINGS: HEART AND MEDIASTINAL STRUCTURES: There are few scattered small mediastinal nodes which are nonspecific. No evidence of aortic aneurysm or central pulmonary embolus. Coronary artery calcification and/or stent noted. No mediastinal or hilar mass or adenopathy. LUNGS AND PLEURAL SPACES: Old granulomatous disease. No suspicious nodules. No infiltrates or effusions. BONY STRUCTURES: No acute bony abnormalities apparent. UPPER ABDOMEN: Fatty liver ADDITIONAL FINDINGS: No other significant abnormalities. IMPRESSION: No acute finding Dictated by: Mike Mccollum MD 03/24/2020 07:30 Mike Mccollum MD in [place] 03/24/2020 07:30
[2020-03-23 09:38] LABS: Basophils # 0.2 K/mm3 (0-0.2); Basophils % 1.2 % (0.1-2.0); Eosinophils # 0.2 K/mm3 (0.0-0.4); Eosinophils % 1.5 % (0.1-12.0); Hematocrit 51.7 % (42.0-52.0); Hemoglobin 17.4 g/dL (14.1-18.0); Lymphocytes # 3.3 K/mm3 (0.7-4.5); Lymphocytes % 24.4 % (10-50); Mean Corpuscular HGB Conc 33.6 g/dL (31.8-35.4); Mean Corpuscular Hemoglobin 29.3 pg (27.0-31.2); Mean Corpuscular Volume 87.2 fl (80-94); Monocytes # 0.7 K/mm3 (0.1-1.0); Monocytes % 5.3 % (1.7-9.3); Neutrophils # 9.1 K/mm3 (1.8-7.8); Neutrophils % 67.6 % (37.0-80.0); Platelet Count 311 K/mm3 (142-424); Red Blood Count 5.93 M/mm3 (4.60-6.20); Red Cell Distribution Width 13.5 % (11.5-17.5); White Blood Count 13.4 K/mm3 (4.8-10.8)
[2020-03-23 09:47] LABS: Chloride 100 mmol/L (98-107); Potassium 4.8 mmoL/L (3.5-5.1); Sodium 138 mmol/L (136-145)
[2020-03-23 09:49] LABS: Alanine Aminotransferase 74 U/L (12-78); Aspartate Amino Transferase 40 U/L (17-59); Bilirubin,Unconjugated 0.8 mg/dL (0.0-1.1)
[2020-03-23 09:50] LABS: Albumin Level 4.8 g/dl (3.5-5.0); Alkaline Phosphatase 90 U/L (38-126); Anion Gap 15.8 mEq/L (5-15); Bilirubin,Direct 0.3 mg/dl (0.0-0.4); Bilirubin,Indirect 0.8 mg/dL (0.0-0.9); Bilirubin,Total 1.1 mg/dl (0.2-1.3); Blood Urea Nitrogen 15 mg/dl (9-20); Carbon Dioxide 27 mmol/L (22.0-30.0); Chol/HDL Ratio 4.5 (1-3.5); Cholesterol 159 mg/dl (140-200); Estimated Glomerular Filt Rate 73 ml/min (>60); GFR (African American) 88 ML/MIN (>60); HDL Cholesterol 35 mg/dl (40-60); Triglycerides 175 mg/dl (30-150); VLDL Cholesterol 35 mg/dL (0-40)
[2020-03-23 09:51] LABS: Glucose 133 mg/dl (74-100)
[2020-03-23 10:01] LABS: Direct LDL Cholesterol 92.51 mg/dL (100-129)
== END ==
PROVIDERS: Nurse Practitioner Family; PCP Family Medicine; Visit Provider Urology
DX: D75.1 Secondary polycythemia (principal); I25.10 Atherosclerotic heart disease of native coronary artery without angina pectoris; I42.9 Cardiomyopathy, unspecified; E78.5 Hyperlipidemia, unspecified; I10 Essential (primary) hypertension; R53.83 Other fatigue
CPT/HCPCS: 36415; 71260; 74160; 80048; 80061; 80076; 85025; Q9967

== ENCOUNTER → 2020-03-28 10:57 | Outpatient (CLI) | payer BC, SELFPAY ==
[2020-03-28 11:13] LABS: Basophils # 0.1 K/mm3 (0-0.2); Basophils % 0.9 % (0.1-2.0); Eosinophils # 0.2 K/mm3 (0.0-0.4); Eosinophils % 2.1 % (0.1-12.0); Hematocrit 49.5 % (42.0-52.0); Hemoglobin 17.1 g/dL (14.1-18.0); Lymphocytes # 2.1 K/mm3 (0.7-4.5); Lymphocytes % 19.6 % (10-50); Mean Corpuscular HGB Conc 34.5 g/dL (31.8-35.4); Mean Corpuscular Hemoglobin 29.8 pg (27.0-31.2); Mean Corpuscular Volume 86.4 fl (80-94); Mean Platelet Volume 7.3 fl (7.4-10.4); Monocytes # 0.6 K/mm3 (0.1-1.0); Monocytes % 5.3 % (1.7-9.3); Neutrophils # 7.7 K/mm3 (1.8-7.8); Neutrophils % 72.2 % (37.0-80.0); Platelet Count 266 K/mm3 (142-424); Red Blood Count 5.73 M/mm3 (4.60-6.20); Red Cell Distribution Width 13.7 % (11.5-17.5); White Blood Count 10.7 K/mm3 (4.8-10.8)
[2020-03-28 11:19] LABS: Blood Urea Nitrogen 14 mg/dl (9-20); Calcium 9.3 mg/dl (8.4-10.2); Carbon Dioxide 22 mmol/L (22.0-30.0); Chloride 102 mmol/L (98-107); Estimated Glomerular Filt Rate 82 ml/min (>60); GFR (African American) 99 ML/MIN (>60); Glucose 124 mg/dl (74-100); Sodium 136 mmol/L (136-145)
[2020-03-28 12:26] LABS: Anion Gap 16.2 mEq/L (5-15); Potassium 4.2 mmoL/L (3.5-5.1)
== END ==
PROVIDERS: Internal Medicine; Visit Provider Nurse Practitioner Family
DX: I25.10 Atherosclerotic heart disease of native coronary artery without angina pectoris (principal); D75.1 Secondary polycythemia; E78.5 Hyperlipidemia, unspecified; I10 Essential (primary) hypertension; I42.9 Cardiomyopathy, unspecified; I74.2 Embolism and thrombosis of arteries of the upper extremities; R06.83 Snoring; R40.0 Somnolence; R53.83 Other fatigue; Z78.9 Other specified health status
CPT/HCPCS: 36415; 80048; 85025

== ENCOUNTER → 2020-03-31 11:17 | Outpatient (CLI) | payer BC, SELFPAY ==
--- NOTE | 2020-03-31 12:00 | PC.NURSE ---
Compete PFT completed without incident. Pt given Albuterol 0.083% via hand held nebulizer per written protocol, Pt tolerated tx well.
== END ==
PROVIDERS: PCP Family Medicine; Visit Provider Internal Medicine
DX: Z78.9 Other specified health status (principal); Z87.891 Personal history of nicotine dependence
CPT/HCPCS: 94060; 94726; 94729; G0399

== ENCOUNTER 2020-04-01 13:48 | Outpatient (RCR) | payer BC, SELFPAY | END 2020-06-08 09:40 | disposition home or self-care (01) | LOC: PT 13:48 | PROVIDERS: Visit Provider Internal Medicine | DX: Z95.5 Presence of coronary angioplasty implant and graft (principal) | CPT/HCPCS: 93798 ==

== ENCOUNTER → 2020-05-28 10:17 | Outpatient (CLI) | payer BC, SELFPAY ==
[2020-05-28 14:08] LABS: Coronavirus 19 IgG Antibody Negative (Negative); Coronavirus 19 IgM Antibody Negative (Negative)
== END ==
PROVIDERS: Visit Provider Internal Medicine Gastroenterology
DX: Z01.818 Encounter for other preprocedural examination (principal); Z20.822 Contact with and (suspected) exposure to COVID-19; Z13.810 Encounter for screening for upper gastrointestinal disorder
CPT/HCPCS: 36415; 86328

== ENCOUNTER 2020-05-30 06:56 | Day surgery (SDC) | payer BC, SELFPAY ==
[2020-05-24 15:00] VITALS: BMI 27.9
[2020-05-30 07:12] VITALS: BP 132/70; PULSE 96; RESP 18; TEMP 36.3; O2SAT 100
--- NOTE | 2020-05-30 08:02 | P.PN_ITS ---
[facility] Anesthesia Checklist - Patient Identification Patient Identification: Arm Band - Structural Data Admitted From: Home Planned Operative Procedure/s: egd Consent for Planned Operative Procedure(s) Verified: Yes Verified Documents: Surgical Consent, History and Physical - NPO Status Verified Time NPO: 00:00 - Additional verifications Anesthesia Reactions: No - Airway Assessment C-Spine Mobility Assessed: Yes (mp2) TMJ Mobility Assessed: Yes Dentition: Good Dentition - Neurological Assessment Level of Consciousness: Awake, Alert - Anesthesia Plan Anesthesia Risk discussed: Yes Anesthesia Plan: Verified ASA Class: III Anesthesia Type: MAC [facility] History I have reviewed the patient's past medical history: Yes Medical History: Reports:: Chronic Obstructive Pulmonary Disease (COPD), Coronary Artery Disease, Gastroesophageal Reflux Disease(GERD), Hyperlipidemia, Hypertension, Myocardial Infarction Denies:: Cancer, Diabetes Mellitus Type 1, Diabetes Mellitus Type 2, Internal Pacemaker, MRSA, Seizures *Have you ever received a pneumonia vaccine?: No *Have you received a flu vaccine this season?: No Anesthesia experience/problems:: nac Other Surgeries: Yes: Cardiac Catheterization, Coronary Stent. No: Pacemaker Amputation: No Fractures: No - *Social History Last grade of school completed: Advanced degree Smoking Status: Former smoker Tobacco Type: cigarettes # Packs/Day (cigarettes): 2 #Yrs smoked (if former smoker): 28 Smoking End Date: 02/2019 Alcohol Intake: never Substance Use Type: denies use *Occupational Status:: employed Housing: house Household Members: spouse, family *Travel in the last 8 weeks: None Family Hx:: Coronary Artery Disease, Thyroid Disorder, Alcoholism
[2020-05-30 08:14] VITALS: O2SAT 97
--- NOTE | 2020-05-30 08:14 | HMH.PROC ---
[facility] Procedure Note Procedure Note:: Upper Endoscopy Procedure Report: Esophagogastroduodenoscopy with cold biopsies and TTS balloon dilation Endoscopost: Jad Brownlee II, MD Referring Physician: Annalee Johnson MD/Narayan Reyna MD Date of Procedure: May 30, 2020 Equipment: Olympus GIF 190 standard upper endoscope Sedation: MAC sedation Indications: Mr. Chambers is a 44-year-old gentleman who had a CAT scan of the abdomen that showed periportal lymphadenopathy which was mild. He also had borderline splenomegaly. He also has secondary polycythemia. He has intermittent heartburn and has taken omeprazole (OTC) 20 mg daily. He has had dysphagia in the past. He also reports some diarrhea that occurs in the mornings. He has occasional spotting of blood from hemorrhoids. He reports no melena or weight loss. 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 He had a second myocardial infarction on March 02, 2020 and had a coronary stent placed. He is on Xarelto and Briilinta. The patient has never had elevated liver chemistries. Procedure: Prior to the procedure, a history and physical exam was performed, and patient's medications and allergies were reviewed. The risks, benefits and alternatives of the sedation and procedure were discussed with the patient. All questions were answered and informed consent was obtained. The patient was brought to the procedure room. Patient identification and proposed procedure were verified by the physician and the nurse. The patient was placed in a left lateral decubitus position and the scope was passed under direct vision. Throughout the procedure, the patient's blood pressure, pulse, and oxygen saturations were monitored continuously. The upper GI endoscopy was accomplished without difficulty. The patient tolerated the procedure well. Findings: The scope was passed directly into the upper esophagus and advanced to the third portion of the duodenum. The post bulbar duodenum and duodenal bulb were normal with normal mucosa and conniventes. Cold biopsies were taken from the post bulbar duodenum and duodenal bulb to rule out celiac disease. The scope was withdrawn through a normal duodenal bulb and pylorus into the stomach. There was linear reactive gastropathy of the antrum and body of the stomach. Cold biopsies were obtained. The remainder of the antrum, body and fundus of the stomach were grossly normal. Upon retroflexion there was no hiatal hernia and no gastric varices. 2 biopsies were taken in the antrum and along the lesser curvature for histology to rule out gastritis and/or H pylori. The scope was then withdrawn into the esophagus. There was evidence of 2 salmon-colored tongues of mucosa at the GE junction that were biopsied to rule out short segment Roberto's esophagus. There was no evidence of reflux esophagitis. There was no evidence of esophageal varices. There were some tertiary contractions and evidence of mild esophageal dysmotility. The entire esophagus was dilated to 60 Turkish/20 mm with a TTS hydrostatic balloon. There was some resistance at the cricopharyngeus. The remainder of the esophageal mucosa was normal. Impression: 1. Nonerosive GERD with mild esophageal dysmotility 2. Mild linear reactive gastropathy Plan: There was no evidence of portal hypertension or esophageal varices. I do feel that the lymphadenopathy was probably reactive. I am uncertain whether the splenomegaly is more hematologic in nature. The patient does have some chronic GERD. If the biopsies do show evidence of short segment Roberto's (intestinal metaplasia), I would continue long-term PPI therapy. Additionally, the patient has had long-term diarrhea. Based upon his age, I would consider diagnostic colonoscopy.
[2020-05-30 08:26] VITALS: BP 112/64; PULSE 76; RESP 12; TEMP 36.4; O2SAT 93
[2020-05-30 08:36] VITALS: BP 130/62; PULSE 70; RESP 16; O2SAT 94
[2020-05-30 08:46] VITALS: BP 131/70; PULSE 65; RESP 16; O2SAT 96
[2020-05-30 08:56] VITALS: BP 156/88; PULSE 66; RESP 16; TEMP 36.4; O2SAT 98
== END 2020-05-30 08:59 | disposition home or self-care (01) ==
LOC: OUTP 06:57
PROVIDERS: PCP Family Medicine; Visit Provider Internal Medicine Gastroenterology
PROC: 0DJ08ZZ Inspection of Upper Intestinal Tract, Via Natural or Artificial Opening Endoscopic (ICD-10-PCS; CPT 43235; principal; 2020-05-30 08:00)
DX: R93.5 Abnormal findings on diagnostic imaging of other abdominal regions, including retroperitoneum (principal); D75.1 Secondary polycythemia; R59.0 Localized enlarged lymph nodes; I25.10 Atherosclerotic heart disease of native coronary artery without angina pectoris; I25.2 Old myocardial infarction; Z79.01 Long term (current) use of anticoagulants; Z79.02 Long term (current) use of antithrombotics/antiplatelets; J44.9 Chronic obstructive pulmonary disease, unspecified; K21.9 Gastro-esophageal reflux disease without esophagitis; I10 Essential (primary) hypertension; E78.5 Hyperlipidemia, unspecified; Z79.899 Other long term (current) drug therapy
CPT/HCPCS: 43239; 43249; C1726

== ENCOUNTER → 2020-06-20 11:20 | Outpatient (CLI) | payer BC, SELFPAY ==
[2020-06-20 11:43] LABS: Basophils # 0.1 K/mm3 (0-0.2); Basophils % 0.8 % (0.1-2.0); Eosinophils # 0.3 K/mm3 (0.0-0.4); Eosinophils % 2.7 % (0.1-12.0); Hematocrit 46.1 % (42.0-52.0); Hemoglobin 15.5 g/dL (14.1-18.0); Lymphocytes # 2.7 K/mm3 (0.7-4.5); Lymphocytes % 28.3 % (10-50); Mean Corpuscular HGB Conc 33.6 g/dL (31.8-35.4); Mean Corpuscular Hemoglobin 29.5 pg (27.0-31.2); Mean Corpuscular Volume 87.7 fl (80-94); Mean Platelet Volume 7.4 fl (7.4-10.4); Monocytes # 0.6 K/mm3 (0.1-1.0); Monocytes % 5.9 % (1.7-9.3); Neutrophils % 62.3 % (37.0-80.0); Platelet Count 259 K/mm3 (142-424); Red Blood Count 5.26 M/mm3 (4.60-6.20); Red Cell Distribution Width 13.4 % (11.5-17.5); White Blood Count 9.6 K/mm3 (4.8-10.8)
== END ==
PROVIDERS: Visit Provider Internal Medicine Medical Oncology
DX: D75.1 Secondary polycythemia (principal)
CPT/HCPCS: 36415; 85025

== ENCOUNTER → 2020-06-21 08:42 | Outpatient (CLI) | payer BC, SELFPAY ==
--- NOTE | 2020-06-21 08:51 | CT_ITS ---
PROCEDURE: CT ABDOMEN PELVIS W CON CLINICAL INDICATION: POLYCYTHEMIA Follow up Prior on pacs COMPARISON: CT CT ABDOMEN W CON from 03/23/2020 TECHNIQUE: IV Contrast: 75ML Isovue 370 Oral Contrast None Axial images obtained with sagittal and coronal reformats. All CT scans at the facility use one or more dose reduction, viz: automated exposure control, ma/kV adjustment per patient size (including targeted exams where dose is matched to indication, i.e. head), or iterative reconstruction technique. FINDINGS: LOWER THORAX: The lung bases are clear. Calcified granulomas present in the right lower lobe laterally. ABDOMEN & PELVIS: The liver has an unremarkable appearance. There remains mild splenomegaly with the spleen measuring 13 x 11 x 6 cm similar to the previous exam. There is a thin linear lucency through the mid aspect of the spleen inferiorly felt to be due to an area lobulation as opposed to splenic laceration. A small splenule is once again noted. The adrenal glands, and pancreas have an unremarkable appearance. There are small bilateral renal cysts the largest in the right kidney at 2.6 cm. Small periportal lymph nodes are present as before not significantly changed. Small nodes are present in the mesenteries No intestinal obstruction or free air. No evidence of appendicitis or diverticulitis. There is a mild amount of retained colonic feces. No pelvic mass or abnormal fluid collection. No acute bony anomaly. Minimal lumbar scoliosis convex left. IMPRESSION: Overall no change with no acute finding. Mild splenomegaly unchanged. Dictated by: Mike Mccollum MD 06/22/2020 06:17 Mike Mccollum MD in [place] 06/22/2020 06:17
== END ==
PROVIDERS: PCP Family Medicine; Visit Provider Internal Medicine Medical Oncology
DX: D45 Polycythemia vera (principal); D75.1 Secondary polycythemia
CPT/HCPCS: 74177; Q9967

== ENCOUNTER → 2020-12-05 11:16 | Outpatient (CLI) | payer BC, SELFPAY ==
--- NOTE | 2020-12-05 | CA_ITS ---
APPROVED REPORT Exam: Exercise Treadmill Technologist: Gi Romero, Ht: 5 ft 10 in Wt: 195 lbs BSA: 2.07 m2 HR: 63 bpm BP: 116/70 mmHg Medical History Medical History: Hyperlipidemia, HTN Medications: Metoprolol,,,,, Atorvastatin,,,,, XaRELTO,,,,, BRILINTA,,,,, Ezetimibe,,,,, Lisinopril HCTZ,,,,, Omeperazole,,,,, SucCINATE ER,,,,, Allergies: No known drug allergies Cardiac Risk Factors: HTN, Hyperlipidemia, Smoking Stress Test Details Test: Moustapha HR Resting HR: 71 bpm Max Heart Rate (APMHR): 176.702666 bpm Max HR Achieved: 162 bpm Target HR (85% APMHR): 149.655636 bpm % of APMHR: 92.05 Recovery HR: 106 bpm BP Resting BP: 113/72 mmHg Max BP: 179/94 mmHg Recovery BP: 146.0/96.0 mmHg ECG Clinical Exercise duration: 08:17 min Highest Stage Achieved: Exercise capacity: 10.1 METs Stress ECG Conclusion PTS LEGS BURNING. NO CP. NO SOA. PVCS NOTED. <1.[address] SEGMENT CHANGES. Test Summary REST . . . . . . . Sitting REST . . . . . . . Standing REST 11:03 0.0 0.0 71 . 113/ 72 . . Stage 1 01:00 10.0 1.7 102 . . . . Stage 1 02:00 10.0 1.7 96 . . . . Stage 1 03:00 10.0 1.7 99 . 120/ 70 . . Stage 2 01:00 12.0 2.5 128 . . . . Stage 2 02:00 12.0 2.5 125 . . . . Stage 2 03:00 12.0 2.5 135 . 125/ 75 . . Stage 3 01:00 14.0 3.4 155 . . . . Stage 3 . . . . . . . Myoview Injected Stage 3 02:00 14.0 3.4 160 . 138/ 75 . . Stage 3 02:17 14.0 3.4 161 . 138/ 75 . Stop exercise at 08:17 RECOVERY 01:00 0.0 0.0 149 . . . . RECOVERY 02:00 0.0 0.0 127 . 179/ 94 . . RECOVERY 03:00 0.0 0.0 120 . 179/ 94 . . RECOVERY 04:00 0.0 0.0 110 . 140/ 90 . . RECOVERY 05:00 0.0 0.0 107 . 148/ 86 . . RECOVERY 06:00 0.0 0.0 103 . 146/ 96 . . RECOVERY 06:08 0.0 0.0 101 . 146/ 96 . . Electronically signed by : Dakota Agrawal MD 12/05/2020 21:14:31
--- NOTE | 2020-12-05 11:16 | NM_ITS ---
APPROVED REPORT Exam: Nuclear Stress Test Indication: Chest pain, CAD, HTN, High cholesterol, SOB Patient Location: Outpatient Stress Tech: Gi Romero [place] Tech:Miriam Bunch, ARRT, RT (R)(N) Ht: 5 ft 10 in Wt: 190 lbs HR: 63 bpm BP: 116/70 mmHg BSA: 2.04 m2 BMI: 27.2 History: Chest pain, CAD, HTN, High cholesterol, SOB Procedure: Patient exercised on Moustapha protocol 8:17 minutes and sec, resting heart rate 63 bpm, resting blood pressure 116/70 mmHg, with exercise maximum heart rate achived was 158 bpm which is 92 % of the maximum predicted heart rate and blood pressure was 138/75 mmHg. Test was stopped due to leg pain. Patient denied any complaint of chest pain. Patient has good exercise capacity, achieved 10.1 METs of workload on treadmill, the blood pressure response to exercise was Adequate. Electrocardiogram Resting electrocardiogram shows sinus rhythm, with exercise there is less than 1.[address] segment depression noted from the baseline EKG. The EKG portion of the exercise Myoview is negative for ischemia. Cardiac Stress and Resting SPECT Images: Cardiac Stress and Resting SPECT images were obtained using technetium 99m Myoview 30.8 mCi stress and 10.57 mCi at rest. Gated SPECT for analysis of segmental wall motion and calculation of the ejection fraction also done. Prone images were also obtained. Cardiac stress and resting SPECT images show a fixed defect involving the anterior apical wall and anteroseptal wall consistent with area of nontransmural myocardial scarring without significant tyra-infarct ischemia, computer derived ejection fraction is 42% with moderate hypokinesis involving the anterior apical apex and anteroseptal wall. Right ventricle is normal size and contractility. Conclusion: 1. The EKG portion of the exercise Myoview is negative for ischemia, patient has good exercise capacity achieved 10.1 METs of workload on treadmill, the blood pressure response to exercise was adequate, there was no exercise-induced chest discomfort. 2. Scintigraphic evidence of nontransmural myocardial scarring involving the anterior apical, apex and anteroseptal wall without significant tyar-infarct ischemia, computer derived ejection fraction is 42% with segmental wall motion abnormality described above, right ventricle is normal size and contractility. 3. Abnormal exercise Myoview study. Electronically signed by : Dakota Agrawal MD 12/05/2020 21:20:25
--- NOTE | 2020-12-05 13:29 | HMH.ITSHM ---
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 []TICAGRELOR RIVAROXABAN OMEPRAZOLE METOPROLOL LISINOPRIL EZETIMIBE ATORVASTATIN
== END ==
PROVIDERS: PCP Family Medicine; Visit Provider Physician Assistant
DX: R06.00 Dyspnea, unspecified (principal); I42.9 Cardiomyopathy, unspecified; I20.9 Angina pectoris, unspecified; I10 Essential (primary) hypertension; D75.1 Secondary polycythemia; E78.5 Hyperlipidemia, unspecified; I74.2 Embolism and thrombosis of arteries of the upper extremities; R16.1 Splenomegaly, not elsewhere classified; R53.83 Other fatigue; Z78.9 Other specified health status
CPT/HCPCS: 78452; 93017

== ENCOUNTER → 2020-12-08 09:34 | Outpatient (CLI) | payer BC, SELFPAY ==
[2020-12-08 10:12] LABS: Basophils # 0.1 K/mm3 (0-0.2); Eosinophils # 0.2 K/mm3 (0.0-0.4); Eosinophils % 2.1 % (0.1-12.0); Hematocrit 45.6 % (42.0-52.0); Hemoglobin 15.1 g/dL (14.1-18.0); Lymphocytes # 2.3 K/mm3 (0.7-4.5); Lymphocytes % 21.7 % (10-50); Mean Corpuscular HGB Conc 33.2 g/dL (31.8-35.4); Mean Corpuscular Volume 90.5 fl (80-94); Mean Platelet Volume 7.7 fl (7.4-10.4); Monocytes # 0.6 K/mm3 (0.1-1.0); Monocytes % 5.7 % (1.7-9.3); Neutrophils # 7.3 K/mm3 (1.8-7.8); Neutrophils % 69.5 % (37.0-80.0); Platelet Count 283 K/mm3 (142-424); Red Blood Count 5.04 M/mm3 (4.60-6.20); Red Cell Distribution Width 13.8 % (11.5-17.5); White Blood Count 10.6 K/mm3 (4.8-10.8)
[2020-12-08 10:51] LABS: Free Thyroxine Index 2.9 ug/dL (5.93-13.13); T4 (Thyroxine) 9.5 ug/dl (5.53-11.0); Triiodothryronine (T3) Uptake 31 % (23.5-40.5)
[2020-12-08 11:05] LABS: Thyroid Stimulating Hormone 0.39 uIU/mL (0.465-4.68)
[2020-12-08 17:31] LABS: Chloride 105 mmol/L (98-107); Potassium 4.3 mmoL/L (3.5-5.1); Sodium 135 mmol/L (136-145)
[2020-12-08 17:34] LABS: Anion Gap 14.3 mEq/L (5-15); Blood Urea Nitrogen 15 mg/dl (9-20); Carbon Dioxide 20 mmol/L (22.0-30.0); Estimated Glomerular Filt Rate 92 ml/min (>60); GFR (African American) 111 ML/MIN (>60)
[2020-12-08 17:35] LABS: Calcium 8.7 mg/dl (8.4-10.2); Glucose 122 mg/dl (74-100)
== END ==
PROVIDERS: Visit Provider Physician Assistant
DX: I25.10 Atherosclerotic heart disease of native coronary artery without angina pectoris (principal); I42.9 Cardiomyopathy, unspecified; I10 Essential (primary) hypertension; R53.83 Other fatigue; D75.1 Secondary polycythemia; I51.9 Heart disease, unspecified
CPT/HCPCS: 36415; 80048; 84436; 84443; 84479; 85025

== ENCOUNTER → 2020-12-14 15:33 | Outpatient (CLI) | payer BC, SELFPAY ==
[2020-12-14 17:01] LABS: Erythrocyte Sedimentation Rate 24 mm/hr (0-15)
[2020-12-14 18:18] LABS: Free Thyroxine Index 3.5 ug/dL (5.93-13.13); T4 (Thyroxine) 11.7 ug/dl (5.53-11.0); Triiodothryronine (T3) Uptake 30 % (23.5-40.5)
[2020-12-14 18:31] LABS: Thyroid Stimulating Hormone 0.14 uIU/mL (0.465-4.68)
[2020-12-16 08:31] LABS: Thyroid Peroxidase Antibodies <8 IU/mL (0-34)
== END ==
PROVIDERS: Visit Provider Family Medicine
DX: R79.89 Other specified abnormal findings of blood chemistry (principal)
CPT/HCPCS: 84436; 84443; 84479; 85651; 86376

== ENCOUNTER → 2020-12-20 14:47 | Outpatient (CLI) | payer BC, SELFPAY ==
--- NOTE | 2020-12-20 14:49 | US_ITS ---
PROCEDURE: US THYROID CLINICAL INDICATION: LOW TSH LEVEL COMPARISON: CT CT CHEST W CON from 03/23/2020 FINDINGS: Right lobe: Measures 1.8 x 4.6 x 2.1 cm. Normal echotexture. Hypoechoic nodule measuring 3 millimeters. Hypoechoic nodule measuring 5 millimeters. Left lobe: Measures 1.4 x 4.5 x 2.0 cm with normal echotexture. 2 hypoechoic nodules measuring 3 millimeters. Isthmus: Unremarkable Additional findings: Normal vascularity. IMPRESSION: Tiny bilateral hypoechoic nodules which do not meet SRU criteria for FNA. Otherwise unremarkable thyroid. Dictated by: Jaci Lakhani MD 12/21/2020 14:18 Jaci Lakhani MD in [place] 12/21/2020 14:18
== END ==
PROVIDERS: PCP Family Medicine; Visit Provider Family Medicine
DX: R79.89 Other specified abnormal findings of blood chemistry (principal)
CPT/HCPCS: 76536

== ENCOUNTER → 2020-12-27 08:09 | Outpatient (CLI) | payer BC, SELFPAY ==
[2020-12-27 08:49] LABS: Basophils # 0.2 K/mm3 (0-0.2); Basophils % 1.5 % (0.1-2.0); Eosinophils # 0.3 K/mm3 (0.0-0.4); Eosinophils % 2.6 % (0.1-12.0); Hematocrit 48.7 % (42.0-52.0); Hemoglobin 16.4 g/dL (14.1-18.0); Lymphocytes # 2.6 K/mm3 (0.7-4.5); Lymphocytes % 26.1 % (10-50); Mean Corpuscular HGB Conc 33.6 g/dL (31.8-35.4); Mean Corpuscular Volume 89.3 fl (80-94); Mean Platelet Volume 7.8 fl (7.4-10.4); Monocytes # 0.5 K/mm3 (0.1-1.0); Monocytes % 5.5 % (1.7-9.3); Neutrophils # 6.4 K/mm3 (1.8-7.8); Neutrophils % 64.3 % (37.0-80.0); Platelet Count 272 K/mm3 (142-424); Red Blood Count 5.45 M/mm3 (4.60-6.20); Red Cell Distribution Width 13.8 % (11.5-17.5); White Blood Count 9.9 K/mm3 (4.8-10.8)
[2020-12-27 10:14] LABS: Chloride 106 mmol/L (98-107); Potassium 4.3 mmoL/L (3.5-5.1); Sodium 138 mmol/L (136-145)
[2020-12-27 10:17] LABS: Alanine Aminotransferase 38 U/L (12-78); Albumin Level 4.1 g/dl (3.5-5.0); Albumin/Globulin Ratio 1.6 (1.1-1.8); Alkaline Phosphatase 116 U/L (38-126); Anion Gap 14.3 mEq/L (5-15); Aspartate Amino Transferase 29 U/L (17-59); Bilirubin,Total 0.6 mg/dl (0.2-1.3); Blood Urea Nitrogen 12 mg/dl (9-20); Calcium 9.2 mg/dl (8.4-10.2); Carbon Dioxide 22 mmol/L (22.0-30.0); Estimated Glomerular Filt Rate 105 ml/min (>60); GFR (African American) 127 ML/MIN (>60); Globulin 2.6 g/dL (1.3-3.2); Glucose 142 mg/dl (74-100); Total Protein,Serum 6.7 g/dl (6.3-8.2)
== END ==
PROVIDERS: Visit Provider Internal Medicine Medical Oncology
DX: D45 Polycythemia vera (principal)
CPT/HCPCS: 36415; 80053; 85025

== ENCOUNTER → 2021-01-02 10:22 | Outpatient (CLI) | payer BC, SELFPAY ==
--- NOTE | 2021-01-02 10:25 | CT_ITS ---
PROCEDURE: CT ABDOMEN PELVIS W CON CLINICAL INDICATION: POLYCTHEMIA COMPARISON: CT CT ABDOMEN PELVIS W CON from 06/21/2020 TECHNIQUE: IV Contrast: 75ML Isovue 370 Oral Contrast 450ml Redicat Axial images obtained with sagittal and coronal reformats. All CT scans at the facility use one or more dose reduction, viz: automated exposure control, ma/kV adjustment per patient size (including targeted exams where dose is matched to indication, i.e. head), or iterative reconstruction technique. FINDINGS: LOWER THORAX: No acute finding ABDOMEN & PELVIS: 4 mm hypodensity is present in the inferior aspect of the right hepatic lobe and 1 also in the hepatic dome which may represent small hepatic cysts not significantly changed. The liver has an otherwise unremarkable appearance. Adrenal glands and pancreas have an unremarkable appearance. There is borderline splenomegaly at 13 cm in maximum dimension. There are few small periportal lymph nodes unchanged. No radiopaque gallstones. There are small bilateral renal cortical cysts. No renal or ureteral calculi. No hydronephrosis. No intestinal obstruction or free air. Unremarkable appendix. No pelvic mass or abnormal fluid collection. No adenopathy. No acute bony findings. IMPRESSION: No acute finding with no significant change Borderline splenomegaly Dictated by: Mike Mccollum MD 01/03/2021 07:47 Mike Mccollum MD in [place] 01/03/2021 07:47
== END ==
PROVIDERS: PCP Family Medicine; Visit Provider Internal Medicine Medical Oncology
DX: D75.1 Secondary polycythemia (principal)
CPT/HCPCS: 74177; Q9967

== ENCOUNTER → 2021-02-02 15:44 | Outpatient (CLI) | payer BC, SELFPAY ==
[2021-02-02 16:50] LABS: Free T4 (Free Thyroxine) 0.89 ng/dl (0.78-2.19)
[2021-02-02 17:03] LABS: Thyroid Stimulating Hormone 0.73 uIU/mL (0.465-4.68)
== END ==
PROVIDERS: Visit Provider Clinical Nurse Specialist Adult Health
DX: R94.6 Abnormal results of thyroid function studies (principal)
CPT/HCPCS: 36415; 84439; 84443

== ENCOUNTER → 2021-02-27 07:54 | Outpatient (CLI) | payer BC, SELFPAY ==
[2021-02-27 08:33] VITALS: PULSE 74; PULSE 80
== END ==
LOC: RT 07:55
PROVIDERS: PCP Family Medicine; Visit Provider Internal Medicine Pulmonary Disease
DX: R06.09 Other forms of dyspnea (principal)
CPT/HCPCS: 94060; 94640; 94727; 94729

== ENCOUNTER 2021-03-10 11:20 | Emergency (ER) | payer BC, SELFPAY ==
--- NOTE | 2021-03-10 12:43 | HMH.EDUTC ---
[facility] [place] Clinical Impression: Viral syndrome, Exposure to COVID-19 virus Sinusitis Qualifiers: Sinusitis location: unspecified location Chronicity: acute Recurrence: non-recurrent Qualified Code(s): J01.90 - Acute sinusitis, unspecified Disposition: Home, Self-Care Condition on Discharge: Good Instructions: DI for Sinusitis, DI for COVID-19 (Suspected or Confirmed ), Preventing the Spread of Coronavirus Discharge Instructions Additional Instructions: Drink plenty of fluids. Take tylenol or ibuprofen for pain or fever. Take the medications as directed. Follow up with your regular doctor. GO TO THE ER FOR ANY WORSENING SYMPTOMS Quarantine until you know the results of your covid-19 test. If it is positive, the health department should call you and give you further instructions about your length of Quarantine and other things. Notify your school or workplace of your results and follow their instructions regarding return to work/school. Prescriptions: Ondansetron [Zofran 4mg ODT] 4 mg PO Q8HP PRN #20 tab PRN Reason: Nausea Transmission Status: Received by [id number] Amoxicillin [Amoxicillin 500mg Tab] 500 mg PO TID 10 Days #30 tab Transmission Status: Received by [id number] Referrals: Speedy Gregg MD [Primary Care Provider] - Forms: Work/School Release Time of Disposition: 13:40 Medical Decision Making - Medical Records Medical records reviewed: No: I reviewed the patient's medical records. - Albaro Inquiry Pt receiving controlled substance: No Vital Signs: 03/10/21 12:45 03/10/21 13:50 Temperature 97.9 F 97.9 F Temperature Source Oral Pulse Rate 79 Pulse Rate [Left] 79 Respiratory Rate 16 16 Blood Pressure 107/66 L Blood Pressure [Right Arm] 107/66 L Blood Pressure Mean [Right Arm] 79 02 Sat by Pulse Oximetry 98 - Lab Data Lab results reviewed: Yes: I reviewed the patient's lab results. Lab Results 03/10/21 13:01: Strep Scn [facility] Negative 03/10/21 13:02: Influenza Type A Ag Negative, Influenza Type B Ag Negative [facility] [place] - General Stated complaint: sore throat, cough, vomiting/diarrhea, h/a Time Seen by Provider: 03/10/21 12:43 - History of Present Illness Provider Complaint: He states that for the past 3 days he has had sinus congestion and chest congestion. He denies any known exposure to covid-19. - Related Data Home Medications Medication Instructions Recorded Confirmed lisinopriL [Zestril 10mg Tab] 10 mg PO DAILY 03/08/20 03/09/21 atorvastatin 40 mg tablet 40 mg PO HS tab 05/09/20 03/09/21 omeprazole 40 mg capsule,delayed 40 mg PO DAILY cap 06/27/20 03/09/21 release ticagrelor 90 mg tablet 90 mg PO BID 06/27/20 03/09/21 ezetimibe 10 mg tablet 10 mg PO DAILY tab 10/24/20 03/09/21 Previous Rx's Medication Instructions Recorded rivaroxaban 20 mg tablet See Rx Instructions .ROUTE 11/01/20 .COMPLEX #30 tablet metoprolol succinate 50 mg 50 mg PO DAILY #90 tab 11/14/20 tablet,extended release 24 hr Amoxicillin [Amoxicillin 500mg Tab] 500 mg PO TID 10 Days #30 tab 03/10/21 Ondansetron [Zofran 4mg ODT] 4 mg PO Q8HP PRN #20 tab 03/10/21 Allergies Allergy/AdvReac Type Severity Reaction Status Date / Time No Known Allergies Allergy Verified 03/09/21 13:14 [facility] History - Hepatitis A Screen Attestation statement:: This patient has been screened for Hepatitis A risk factors. I have reviewed the patient's past medical history: Yes Medical History: Reports:: Chronic Obstructive Pulmonary Disease (COPD), Coronary Artery Disease, Gastroesophageal Reflux Disease(GERD), Hyperlipidemia, Hypertension, Myocardial Infarction, Seizures Denies:: Cancer, Diabetes Mellitus Type 1, Diabetes Mellitus Type 2, Internal Pacemaker, MRSA Other Surgeries: Yes: Cardiac Catheterization, Coronary Stent. No: Pacemaker Amputation: No Fractures: No Comment: stent placed February 2020 - Social
[2021-03-10 12:45] VITALS: BP 107/66; PULSE 79; RESP 16; TEMP 36.6; O2SAT 98; BMI 28.7
[2021-03-10 13:02] LABS: UTC Influenza A Antigen Negative (Negative)
[2021-03-10 13:03] LABS: UTC Influenza B Antigen Negative (Negative)
[2021-03-10 13:03] LABS: UTC Strep Screen (Rapid) Negative (Negative)
[2021-03-10 13:50] VITALS: BP 107/66; PULSE 79; RESP 16; TEMP 36.6
== END 2021-03-10 13:51 | disposition home or self-care (01) ==
PROVIDERS: Emergency Provider Nurse Practitioner Family; PCP Family Medicine
DX: J01.90 Acute sinusitis, unspecified (principal); B34.9 Viral infection, unspecified; Z20.822 Contact with and (suspected) exposure to COVID-19
CPT/HCPCS: 87804; 87880; 99203; C9803; G0463; U0003; U0005

== ENCOUNTER → 2021-05-09 12:45 | Outpatient (CLI) | payer BC, SELFPAY ==
--- NOTE | 2021-05-09 12:46 | CT_ITS ---
FINAL REPORT TECHNIQUE: Axial images were obtained from the lung apex to the mid abdomen by computed tomography utilizing high-resolution protocol including inspiration, expiration and prone imaging. Coronal reformatted images were obtained. This study was performed with techniques to keep radiation doses as low as reasonably achievable, (ALARA). Individualized dose reduction techniques using automated exposure control or adjustment of mA and/or kV according to the patient''s size were employed. CLINICAL HISTORY: soa FINDINGS: There is no axillary adenopathy. There is no hilar or mediastinal adenopathy. Heart size is normal. There is no pericardial or pleural effusion. Limited images of the upper abdomen are unremarkable. No suspicious infiltrate or nodule is identified. There is no evidence of bronchiectasis, emphysema or interstitial lung disease. There is no evidence of air trapping in the expiration images. There is a calcified granuloma in the lateral right lung base. IMPRESSION: No acute process. Reviewed, Interpreted and Dictated by Bayron Gutierrez III, MD Transcribed by Katja Perales Authenticated by Bayron Gutierrez III, MD on 05/09/2021 03:22:[address] [facility]
== END ==
LOC: RAD 12:46
PROVIDERS: PCP Family Medicine; Visit Provider Internal Medicine Pulmonary Disease
DX: R06.02 Shortness of breath (principal)
CPT/HCPCS: 71250

== ENCOUNTER → 2021-06-19 14:13 | Outpatient (CLI) | payer BC, SELFPAY ==
--- NOTE | 2021-06-19 14:15 | CA_ITS ---
FINAL REPORT CLINICAL HISTORY: follow up-right radial thrombus 02/2021 COMPARISON: March 22, 2020 FINDINGS: UPPER EXTREMITY ARTERIAL DUPLEX Limited spectral and Doppler waveform evaluations of the right upper extremity were performed. The previous thrombus in the right radial artery has resolved. IMPRESSION: Interval resolution of previous right radial artery thrombus. Reviewed, Interpreted and Dictated by Philip Miller MD Transcribed by Dax Pa Authenticated by Philip Miller MD on 06/19/2021 04:33:[address] [facility]
== END ==
LOC: RT 14:15
PROVIDERS: PCP Family Medicine; Visit Provider Physician Assistant
DX: I74.2 Embolism and thrombosis of arteries of the upper extremities (principal)
CPT/HCPCS: 93931

== ENCOUNTER 2021-11-24 16:04 | Emergency (ER) | payer BC, SELFPAY ==
[2021-11-24] VITALS (8 sets, daily range): BP systolic 115–157; BP diastolic 71–98; PULSE 65–78; RESP 15–18; TEMP 36.4–36.9; O2SAT 96–99; BMI 28.6; BMI 28.7
--- NOTE | 2021-11-24 16:04 | ECG_ITS ---
APPROVED REPORT Exam: Resting ECG HR:78 bpm ECG Measurements Heart Rate 78 AXES OR 159 P 32 QRSd 105 QRS 26 QT 391 T 39 QTc 424 Conclusion SINUS RHYTHM WITH OCCASIONAL VENTRICULAR PREMATURE COMPLEXES BORDERLINE ECG UNCONFIRMED REPORT Electronically signed by : Rajendra Beck MD 11/25/2021 16:05:09
--- NOTE | 2021-11-24 16:18 | XR_ITS ---
PROCEDURE INFORMATION: Exam: XR Chest Exam date and time: 11/24/2021 4:40 PM Age: 46 years old Clinical indication: Chest wall pain; Additional info: Chest pain TECHNIQUE: Imaging protocol: Radiologic exam of the chest. Views: 1 view. COMPARISON: CT HR CHEST X3 05/09/2021 12:57 PM FINDINGS: Lungs: Faint airspace opacities are seen at both lung bases. No consolidation. Pleural spaces: Unremarkable. No pleural effusion. No pneumothorax. Heart/Mediastinum: Unremarkable. No cardiomegaly. Bones/joints: Unremarkable. IMPRESSION: Faint bilateral airspace disease may represent pneumonia.
[2021-11-24 16:25] LABS: Basophils # 0.1 K/mm3 (0-0.2); Basophils % 1.2 % (0.1-2.0); Eosinophils # 0.1 K/mm3 (0.0-0.4); Eosinophils % 1.2 % (0.1-12.0); Hematocrit 46.6 % (42.0-52.0); Hemoglobin 15.8 g/dL (14.1-18.0); Lymphocytes # 2.2 K/mm3 (0.7-4.5); Lymphocytes % 21.3 % (10-50); Mean Corpuscular Hemoglobin 29.8 pg (27.0-31.2); Mean Corpuscular Volume 87.5 fl (80-94); Mean Platelet Volume 7.7 fl (7.4-10.4); Monocytes # 0.6 K/mm3 (0.1-1.0); Monocytes % 5.6 % (1.7-9.3); Neutrophils # 7.1 K/mm3 (1.8-7.8); Neutrophils % 70.6 % (37.0-80.0); Platelet Count 241 K/mm3 (142-424); Red Blood Count 5.32 M/mm3 (4.60-6.20); Red Cell Distribution Width 13.5 % (11.5-17.5); White Blood Count 10.1 K/mm3 (4.8-10.8)
[2021-11-24 16:27] LABS: Chloride 101 mmol/L (98-107); Sodium 140 mmol/L (136-145)
[2021-11-24 16:30] LABS: Blood Urea Nitrogen 13 mg/dl (9-20); Calcium 8.7 mg/dl (8.4-10.2); Carbon Dioxide 29 mmol/L (22.0-30.0); Creatinine Clearance Estimated 133 mL/min (50-200); Estimated Glomerular Filt Rate 91 ml/min (>60); GFR (African American) 110 ML/MIN (>60); Glucose 92 mg/dl (74-100)
[2021-11-24 16:49] LABS: Troponin I < 0.01 ng/ml (0.00-0.034)
--- NOTE | 2021-11-24 17:23 | HMH.EDGENADL ---
Discharge Plan Disposition Patient Disposition: Home, Self-Care Condition: Good Prescriptions Prescriptions: New isosorbide mononitrate 30 mg tablet extended release 24 hr 30 mg PO DAILY Qty: 20 0RF metoprolol succinate 100 mg tablet extended release 24 hr 100 mg PO DAILY Qty: 20 0RF clopidogrel [Plavix] 75 mg tablet 75 mg PO DAILY Qty: 20 0RF No Action omeprazole 40 mg capsule,delayed release(DR/EC) 40 mg PO DAILY Label Comments: TAKE 1 CAPSULE BY MOUTH ONCE DAILY ezetimibe 10 mg tablet 10 mg PO DAILY Label Comments: TAKE 1 TABLET BY MOUTH ONCE DAILY metoprolol succinate 50 mg tablet extended release 24 hr 50 mg PO DAILY Qty: 90 3RF aspirin [Adult Low Dose Aspirin] 81 mg tablet,delayed release (DR/EC) 81 mg PO DAILY coenzyme Q10 [CoQ-10] 100 mg capsule 100 mg PO DAILY lisinopril 10 MG tablet 10 mg PO DAILY atorvastatin 40 mg tablet 40 mg PO HS Referrals Follow up/Referrals: Speedy Gregg MD [Primary Care Provider] - See instructions Activity Restrictions/Add. Instructions Additional Instructions/Restrictions: Stop taking metoprolol 50 mg and start taking metoprolol 100 mg daily. Start Plavix and Imdur as prescribed. Continue your other medications. See Dr. Reyna in the office on Saturday at 9 AM. Return the emergency department if worsening symptoms. Clinical Impressions Clinical Impression: Chest pain Stand Alone Forms Stand Alone Forms: Work/School Release Discharge ED Provider: Pedro De La Cruz Adult HPI General Chief complaint: Chest Pain Stated complaint: chest pain Time Seen by Provider: 11/24/21 17:23 Mode of Arrival: EMS Source of Information: Patient Limitations: No Limitations Description of Symptoms (Recalled from ER Triage Doc. by RN): Pt reports began having chest pain while at work, describes pain as pressure like in nature in upper epigastric area. Pt denies chest pain upon arrival to ED. Per EMS reports pt was pain free upon their arrival to pt. Pt took Aspirin 325mg po at work [employer]. Pt reports cardiac hx of NH with 2 cardiac stents History of Present Illness HPI narrative: States that he woke up this morning about 4:30 AM with chest pressure in his left anterior chest. It lasted less than 5 minutes. He says that it has been coming and going all day since then. He estimates he has had 4-5 episodes each of them lasting less than 5 minutes. He notices shortness of breath only when he goes up steps. He had some slight nausea. Does not think that he was diaphoretic, but says it was hard to tell. Currently has no discomfort at all. He took 325 mg of aspirin at the time of his last episode of chest discomfort and since then has had none. He says his episodes of chest discomfort today are reminiscent of previous heart discomfort. States that he has had 2 heart attacks with stents. First heart attack was at age 36, last NH with stent was in 2020. Also states that a few days ago he had an episode of a discomfort in his left anterior chest associated with a rapid heartbeat that lasted for a couple of minutes. His primary care provider has arranged a Holter monitor which is to be applied Saturday. Related Data Home Medications Medication Instructions Recorded Confirmed lisinopril 10 mg tablet 10 mg PO DAILY bp 03/08/20 07/19/21 atorvastatin 40 mg tablet 40 mg PO HS Cholesterol 05/09/20 07/19/21 omeprazole 40 mg capsule,delayed 40 mg PO DAILY 06/27/20 07/19/21 release ezetimibe 10 mg tablet 10 mg PO DAILY 10/24/20 07/19/21 aspirin 81 mg tablet,delayed 81 mg PO DAILY 07/19/21 07/19/21 release (Adult Low Dose Aspirin) coenzyme Q10 100 mg capsule 100 mg PO DAILY 07/19/21 07/19/21 (CoQ-10) Previous Rx's Medication Instructions Recorded metoprolol succinate 50 mg 50 mg PO DAILY High blood pressure 11/14/20 tablet,extended release 24 hr #90 tabs clopidogrel 75 mg tablet (
--- NOTE | 2021-11-24 17:36 | PC.NURSE ---
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 gavin
--- NOTE | 2021-11-24 18:19 | PC.NURSE ---
pt ambulated to restroom and back, tolerated well. Medicated per MAR, at BS. Call light within reach. Updated pt on POC (next set of lab work at 7:30 pm, if negative the plan is to d/c home) will continue to monitor
[2021-11-24 19:48] LABS: Troponin I < 0.01 ng/ml (0.00-0.034)
== END 2021-11-24 20:40 | disposition home or self-care (01) ==
PROVIDERS: Emergency Provider Emergency Medicine; PCP Family Medicine
DX: R07.9 Chest pain, unspecified (principal); R06.02 Shortness of breath; R11.0 Nausea; I10 Essential (primary) hypertension; I25.2 Old myocardial infarction; R16.1 Splenomegaly, not elsewhere classified; K21.9 Gastro-esophageal reflux disease without esophagitis; R68.3 Clubbing of fingers; R40.0 Somnolence; Z79.82 Long term (current) use of aspirin; Z79.899 Other long term (current) drug therapy; Z95.5 Presence of coronary angioplasty implant and graft; Z87.891 Personal history of nicotine dependence
CPT/HCPCS: 71045; 80048; 84484; 85025; 93005; 99285

== ENCOUNTER → 2021-11-27 09:33 | Outpatient (CLI) | payer BC, SELFPAY | PROVIDERS: PCP Family Medicine; Visit Provider Family Medicine | DX: I49.8 Other specified cardiac arrhythmias (principal) | CPT/HCPCS: 93225 ==

== ENCOUNTER → 2021-12-02 09:15 | Outpatient (CLI) | payer BC, SELFPAY | PROVIDERS: PCP Family Medicine; Visit Provider Nurse Practitioner Family | DX: Z01.812 Encounter for preprocedural laboratory examination (principal); Z20.822 Contact with and (suspected) exposure to COVID-19; I20.8 Other forms of angina pectoris; R07.9 Chest pain, unspecified; I25.5 Ischemic cardiomyopathy; I10 Essential (primary) hypertension; E78.2 Mixed hyperlipidemia; R53.83 Other fatigue; Z78.9 Other specified health status | CPT/HCPCS: C9803; U0003; U0005 ==

== ENCOUNTER 2021-12-04 08:33 | Day surgery (SDC) | payer BC, SELFPAY ==
[2021-12-04] VITALS (15 sets, daily range): BP systolic 95–156; BP diastolic 53–99; PULSE 57–79; RESP 18–20; TEMP 36.9; O2SAT 93–100; BMI 29.8
--- NOTE | 2021-12-04 07:05 | IR_ITS ---
APPROVED REPORT Patient Location: Outpatient Project Facilitator: PALMER Keith RT (R) PROCEDURES Left heart catheterization Left ventriculogram Selective coronary angiogram Drug-eluting stent deployment to the distal dominant right coronary artery INDICATION Coronary artery disease, Angina pectoris Informed consent was obtained prior to the procedure. COMPLICATIONS none Estimated Blood Loss: less than 10 ml TECHNIQUE One percent lidocaine was used to anesthetize the right groin. The right femoral artery was accessed via the Seldinger technique. A 4-Martiniquais sheath was placed in the right femoral artery. The JL-4 and JR-4 catheter was also used to perform left heart catheterization left ventriculogram and selective coronary angiogram. At the end the diagnostic angiogram the 4 Martiniquais sheath exchanged for 6 Martiniquais sheath and therapeutic heparin was administered giving a therapeutic ACT. A multipurpose 6 Martiniquais guide catheter was placed in the right coronary followed by a Choice PT extra-support wire. A 3.5 x 22 mm resolute Chito stent was deployed at 15 forrest reducing the severe distal stenosis to 0%. PHAN-3 flow was present before and after the procedure. At the end of the procedure the apparatus was removed the groin is reprepped closure change sheath was removed and hemostasis was achieved using Perclose device patient was transferred to the postop putting in stable condition ANGIOGRAPHIC RESULTS The left main artery Has a distal concentric 20 to 30% stenosis The left anterior descending artery Has proximal and mid vessel 10% luminal irregularities. PHAN II flow was initially present at the beginning of the procedure The circumflex artery Is nondominant and has a mid vessel 30 to 40% stenosis The right coronary artery Large dominant vessel and has a stent in the proximal to mid segment which is widely patent free of in-stent restenosis with excellent proximal distal transitioning. There is an additional 10 to 20% distal to the RV marginal branch. Distal to the RV marginal branch is a stent which is widely patent. Distal to the stent is a concentric 70% stenosis followed by an additional 50 to 60% stenosis.. A large posterior descending artery has a distal 80% concentric stenosis in the distal portion of the vessel where the artery is 2.25 to 2.5 mm in diameter. Following stenting PHAN II flow down the PDA had improved to PHAN-3 flow The MARADIAGA ventriculogram reveals Dilated ventricle anterior apical and inferoapical hypokinesis estimate ejection fraction 25 to 30% The left ventricular end-diastolic pressure 15 mmHg IMPRESSION Coronary artery disease as described above Successful stenting of the distal dominant right coronary severe disease reduced to 0% with 1 drug-eluting stent Severely reduced ejection fraction Borderline elevated LVEDP PLAN 1. Dual antiplatelet therapy 2. There remains a persistent stenosis in the posterior descending artery however following stenting of the distal dominant right coronary artery PHAN II flow improved to PHAN-3 flow down the posterior descending artery. Because of the distal nature of the stenosis I am inclined to treat medically. Should patient continue to experience angina I would bring him back and would stent the posterior descending artery. It is my belief the flow-limiting stenoses were in the distal dominant right coronary artery and the tandem nature of the stenoses caused PDA ischemia. With the improved flow down the PDA I believe this vessel should be managed medically at this time 3. Maximize antianginal medication 4. Patient should be offered a LifeVest due to LV dysfunction 5. Cardiac rehabilitation 6. LDL less than 55 to be
--- NOTE | 2021-12-04 08:49 | CA_ITS ---
APPROVED REPORT EXAM: Comprehensive 2D, Doppler, and color-flow Echocardiogram Taxation Accountant: Dominique Goodwin RVT Ht: 5 ft 10 in Wt: 208lbs BSA: 2.12 BP: 122/82 mmHg Indications: CAD,CP,CM,HTN,HLD,EULALIA 2D Dimensions LVOT 2.09 cm (M/F) 1.5-2.5 LA Volume 24.00 mL LA Volume Index 11.32 mL/m2 (M/F) 16-34 M-Mode Dimensions RVDd 2.59 cm (0.9-2.6) LA Diam 3.31 cm (1.9-4.0) LVDd 4.99 cm (3.5-5.7) Ao Diam 2.95 cm (2.0-3.7) LVDs 3.40 cm (3.5-5.7) IVSd 1.10 cm (0.6-1.1) PWd 0.90 cm (0.6-1.1) EF (Teich) 48.50% FS 24.30% EDV (Teich) 92.00 mL TAPSE 2.26 (<1.7) ESV (Teich) 47.40 mL LV Diastology E Decel Time 253.00 (160-240 msec) E/A Ratio 0.8 MED E' 6.00 (< 7 cm/sec) E'/MED E' Ratio 7.12 (>14) LAT E' 6.20 (<10 cm/sec) E/LAT E' Ratio 6.89 (>14) Aortic Valve AO Peak GR. 2.80 mmHg Mitral Valve MV E Max Preston. 43.00 (40-130 cm/s) MV A Velocity 51.00 (40-130 cm/s) E/A Ratio 0.83 MV Decel. Time 253.00 (160-240 ms) MV PHT 74.00 ms Pulmonary Valve PV Peak Velocity 60.00 (50-150 cm/s) Left Ventricle Left atrium is mildly enlarged, left ventricle is normal size, mild concentric left ventricular hypertrophy, estimated ejection fraction approximately 45%, there is no regional wall motion abnormality, grade 1 diastolic dysfunction seen without tissue Doppler evidence of raise left atrial pressure. Right Ventricle Right atrium and right ventricle are mildly enlarged with normal contractility. Aortic Valve Aortic valve is minimally thickened and fibrosed there is no aortic stenosis or aortic insufficiency. Mitral Valve Mitral valve grossly normal, there is trace mitral regurgitation. Tricuspid Valve Tricuspid valve grossly normal, there is trace tricuspid regurgitation, tricuspid regurgitation jet velocity is inadequate for calculation of the right ventricular systolic pressure. Pulmonic Valve Pulmonic valve is poorly visualized. Great Vessels Aortic root is normal size. Inferior vena cava is poorly visualized. Pericardium No significant pericardial effusion noted. Conclusion 1. Mild biatrial enlargement, normal left ventricular size, estimated ejection fraction 45% with no regional wall motion abnormality, grade 1 diastolic dysfunction seen without tissue Doppler evidence of raise left atrial pressure. 2. Mildly enlarged right ventricle with normal contractility. 3. Trace mitral and tricuspid regurgitation. 4. No significant pericardial effusion noted. 5. Inferior vena cava is poorly visualized. Electronically signed by : Dakota Agrawal MD 12/05/2021 06:22:18
[2021-12-04 09:19] LABS: Basophils # 0.2 K/mm3 (0-0.2); Basophils % 1.8 % (0.1-2.0); Eosinophils # 0.2 K/mm3 (0.0-0.4); Eosinophils % 1.9 % (0.1-12.0); Hematocrit 48.2 % (42.0-52.0); Hemoglobin 16.6 g/dL (14.1-18.0); Lymphocytes # 2.2 K/mm3 (0.7-4.5); Lymphocytes % 20.9 % (10-50); Mean Corpuscular HGB Conc 34.5 g/dL (31.8-35.4); Mean Corpuscular Hemoglobin 30.6 pg (27.0-31.2); Mean Corpuscular Volume 88.6 fl (80-94); Mean Platelet Volume 7.8 fl (7.4-10.4); Monocytes # 0.8 K/mm3 (0.1-1.0); Monocytes % 7.4 % (1.7-9.3); Neutrophils # 7.2 K/mm3 (1.8-7.8); Neutrophils % 68.1 % (37.0-80.0); Platelet Count 294 K/mm3 (142-424); Red Blood Count 5.44 M/mm3 (4.60-6.20); Red Cell Distribution Width 13.4 % (11.5-17.5); White Blood Count 10.6 K/mm3 (4.8-10.8)
[2021-12-04 09:30] LABS: Anion Gap 13.4 mEq/L (5-15); Blood Urea Nitrogen 15 mg/dl (9-20); Calcium 8.6 mg/dl (8.4-10.2); Carbon Dioxide 26 mmol/L (22.0-30.0); Chloride 100 mmol/L (98-107); Creatinine Clearance Estimated 113 mL/min (50-200); Estimated Glomerular Filt Rate 72 ml/min (>60); GFR (African American) 88 ML/MIN (>60); Glucose 148 mg/dl (74-100); Potassium 4.4 mmoL/L (3.5-5.1); Sodium 135 mmol/L (136-145)
[2021-12-04 12:13] LABS: CATHL Activated Clotting Time 315 SEC (74-125)
--- NOTE | 2021-12-04 14:34 | HMH.PHACL ---
[facility] Vice President Of Operations Discharge Med Fire Coordinator: Vishal Curtis Trish has received discharge medication counseling on the following medications: PATIENT IS CURRENTLY TAKING ASPIRIN 81 MG DAILY, ATORVASTATIN 40 MG HS, CLOPIDOGREL 75 MG DAILY, LISINOPRIL 10 MG DAILY, AND METOPROLOL SUCCINATE 100 MG DAILY.
== END 2021-12-04 15:00 | disposition home or self-care (01) ==
LOC: CATHLAB 08:35
PROVIDERS: PCP Family Medicine; Visit Provider Internal Medicine
DX: I25.118 Atherosclerotic heart disease of native coronary artery with other forms of angina pectoris (principal); I10 Essential (primary) hypertension; I25.5 Ischemic cardiomyopathy; R07.9 Chest pain, unspecified; E78.5 Hyperlipidemia, unspecified; Z79.899 Other long term (current) drug therapy; Z87.891 Personal history of nicotine dependence
CPT/HCPCS: 80048; 85025; 85347; 92928; 93306; 93458; 99152; C1725; C1760; C1769; C1876; C1894; C9600; J1644; Q9967

== ENCOUNTER 2021-12-11 10:00 | Outpatient (RCR) | payer BC, SELFPAY | END 2022-02-01 11:00 | disposition home or self-care (01) | LOC: PT 10:00 | PROVIDERS: Visit Provider Internal Medicine | DX: I25.10 Atherosclerotic heart disease of native coronary artery without angina pectoris (principal); Z95.5 Presence of coronary angioplasty implant and graft | CPT/HCPCS: 93798 ==

== ENCOUNTER → 2021-12-12 10:27 | Outpatient (CLI) | payer BC, SELFPAY ==
[2021-12-12 10:59] LABS: Basophils # 0.1 K/mm3 (0-0.2); Basophils % 1.4 % (0.1-2.0); Eosinophils # 0.2 K/mm3 (0.0-0.4); Hematocrit 45.7 % (42.0-52.0); Lymphocytes # 2.1 K/mm3 (0.7-4.5); Lymphocytes % 24.3 % (10-50); Mean Corpuscular HGB Conc 32.8 g/dL (31.8-35.4); Mean Corpuscular Hemoglobin 28.9 pg (27.0-31.2); Mean Corpuscular Volume 88.2 fl (80-94); Mean Platelet Volume 7.8 fl (7.4-10.4); Monocytes # 0.5 K/mm3 (0.1-1.0); Neutrophils # 5.7 K/mm3 (1.8-7.8); Neutrophils % 66.2 % (37.0-80.0); Platelet Count 261 K/mm3 (142-424); Red Blood Count 5.17 M/mm3 (4.60-6.20); Red Cell Distribution Width 13.4 % (11.5-17.5); White Blood Count 8.6 K/mm3 (4.8-10.8)
[2021-12-12 11:55] LABS: Chloride 100 mmol/L (98-107); Sodium 137 mmol/L (136-145)
[2021-12-12 11:56] LABS: Potassium 4.3 mmoL/L (3.5-5.1)
[2021-12-12 11:59] LABS: Anion Gap 13.3 mEq/L (5-15); Blood Urea Nitrogen 21 mg/dl (9-20); Calcium 8.3 mg/dl (8.4-10.2); Carbon Dioxide 28 mmol/L (22.0-30.0); Estimated Glomerular Filt Rate 72 ml/min (>60); GFR (African American) 88 ML/MIN (>60); Glucose 105 mg/dl (74-100)
== END ==
PROVIDERS: PCP Family Medicine; Visit Provider Internal Medicine
DX: I25.10 Atherosclerotic heart disease of native coronary artery without angina pectoris (principal); Z95.5 Presence of coronary angioplasty implant and graft
CPT/HCPCS: 36415; 80048; 85025

== ENCOUNTER → 2022-01-01 07:44 | Outpatient (CLI) | payer BC, SELFPAY ==
--- NOTE | 2022-01-01 07:48 | CA_ITS ---
FINAL REPORT CLINICAL HISTORY: HTN FINDINGS: Aorta velocity: cm/sec Right kidney: The right kidney measures 11.9 cm. There are 2 cystic structures in the right kidney measuring up to 2.6 cm. There is no hydronephrosis. Right intrarenal RI: 0.7 lower Right renal artery velocity: 225 cm/sec. Right RAR (Renal artery-Aortic Ratio): 3.0 Left Kidney: Left kidney measures 11.9 cm. No evidence of hydronephrosis or mass. Left intrarenal RI: 0.64 Left renal artery velocity: 154 cm/sec. Left RAR (Renal Artery-Aortic Ratio): 2.0 IMPRESSION: Findings corresponding to less than 60% stenosis bilaterally. CT angiogram or postcontrast MR angiogram would be more sensitive for evaluation of possible renal artery stenosis. Reviewed, Interpreted and Dictated by Philip Miller MD Transcribed by Jewels Bryan Authenticated and [facility]
== END ==
PROVIDERS: PCP Family Medicine; Visit Provider Physician Assistant
DX: I10 Essential (primary) hypertension (principal); I25.10 Atherosclerotic heart disease of native coronary artery without angina pectoris; I25.5 Ischemic cardiomyopathy; E78.2 Mixed hyperlipidemia; Z78.9 Other specified health status
CPT/HCPCS: 93976

== ENCOUNTER → 2022-01-25 11:39 | Outpatient (CLI) | payer BC, SELFPAY ==
--- NOTE | 2022-01-25 11:39 | NM_ITS ---
APPROVED REPORT Exam: Nuclear Stress Test Indication: CAD, Hx of CA, HTN, DM, High cholesterol, Former tobacco use, Chest pain, SOB, Syncope Patient Location: Outpatient Stress Tech: Mackenzie Price NM Tech:Jaki BarbosaPALMER RT(R)(N) Ht: 5 ft 10 in Wt: 200 lbs HR: 73 bpm BP: 129/81 mmHg BSA: 2.09 m2 TID: 0.99 BMI: 28.6 History: CAD, Hx of CA, HTN, DM, High cholesterol, Former tobacco use, Chest pain, SOB, Syncope Procedure: Patient received a 0.4 mg of intravenous Lexiscan, resting heart rate 73 bpm, resting blood pressure 129/81 mmHg, with Lexiscan maximum heart rate achived was 126 bpm which is Less than 85 % of the maximum predicted heart rate and blood pressure was 133/87 mmHg. With Lexiscan, patient denied any complaint of chest pain. Electrocardiogram Resting electrocardiogram showed sinus rhythm nonspecific ST-T changes, with Lexiscan there is less than 1.[address] segment depression noted from the baseline EKG. The EKG portion of the Lexiscan is nondiagnostic. Cardiac Stress and Resting SPECT Images: Cardiac Stress and Resting SPECT images were obtained using technetium 99m Myoview 30.7 mCi stress and 10.54 mCi at rest. Gated SPECT analysis of segmental wall motion and calculation of the ejection fraction also done. Prone images were also obtained. Cardiac stress and rest SPECT images show reversible ischemia involving the inferior, apex and anterolateral wall, computer derived ejection fraction is 41% with moderate apical and anterolateral wall hypokinesis, right ventricle is normal size and contractility. Conclusion: 1. The EKG portion of the Lexiscan is nondiagnostic. 2. Scintigraphic evidence of reversible ischemia involving the inferior, apex and anterolateral wall suggestive of multivessel coronary artery disease, computer derived ejection fraction is 41% with segmental wall motion abnormality described above, right ventricle is normal size and contractility. 3. Abnormal Lexiscan Myoview study. Electronically signed by : Dakota Agrawal MD 01/26/2022 10:37:18
--- NOTE | 2022-01-25 11:41 | CA_ITS ---
APPROVED REPORT Exam: Pharmacologic Technologist: Mackenzie Price, Ht: 5 ft 10 in Wt: 204 lbs BSA: 2.10 m2 HR: 69 bpm BP: 129/81 mmHg Rhythm: NSR, RIGHT AXIS DEVIATION, POOR R WAVE PROGRESSION, J POINT ELEVATION IN LEAD II Medical History Medical History: HTN, Hyperlipidemia, Diabetes Medications: Aspirin,,,,, Metoprolol,,,,, Metformin,,,,, Coenzyme,,,,, Atorvastatin,,,,, Plavix,,,,, Ezetimbe,,,,, EnTRESTO,,,,, OmPEprazole,,,,, NitrogGLYCERIN,,,,, Allergies: No known drug allergies Cardiac Risk Factors: HTN, Hyperlipidemia, Smoking, Diabetes Stress Test Details Test: LEXISCAN HR Resting HR: 73 bpm Max Heart Rate (APMHR): 175.237787 bpm Max HR Achieved: 126 bpm Target HR (85% APMHR): 148.457815 bpm % of APMHR: 72.00 Recovery HR: 90 bpm BP Resting BP: 129/81 mmHg Max BP: 133/87 mmHg Recovery BP: 120.0/84.0 mmHg ECG Resting ECG: NSR, RIGHT AXIS DEVIATION, POOR R WAVE PROGRESSION, J POINT ELEVATION IN LEAD II Clinical Exercise duration: 04:01 min Highest Stage Achieved: Stress ECG Conclusion PT HAD MILD CHEST DISCOMFORT, SOA, HEADACHE, AND LEG HEAVINESS RARE ECTOPIC BEAT 0.5-0.75MM HORIZONTAL ST DEPRESSION IN LEAD III ONLY NON-DIAGNOSTIC LEXISCAN STRESS MYOVIEW IMAGES REPORTED SEPARATELY Test Summary REST . . . . . . . Sitting REST . . . . . . . Sitting REST 02:44 . . 73 . 129/ 81 . . Stage 1 01:00 . . 91 . . . . Stage 2 01:00 . . 122 . . . . Stage 3 01:00 . . 109 . 131/ 89 . . Stage 4 01:00 . . 93 . 121/ 77 . . Stage 4 01:01 . . 94 . 121/ 77 . Stop exercise at 04:01 RECOVERY 01:00 . . 99 . . . . RECOVERY 02:00 . . 88 . 132/ 88 . . RECOVERY 03:00 . . 83 . 132/ 88 . . RECOVERY 03:46 . . 95 . 120/ 84 . . Electronically signed by : Dakota Agrawal MD 01/26/2022 10:34:11
--- NOTE | 2022-01-25 14:55 | HMH.ITSHM ---
Current Home Medications as stated by this patient Vishal Chambers or clearance representative. []SACUBITRIL OMEPRAZOLE NITRO METOPROLOL METFORMIN EZETIMIBE COQ10 CLOPIDOGREL ATORVASTATIN ASA
== END ==
PROVIDERS: PCP Family Medicine; Visit Provider Nurse Practitioner Family
DX: I20.8 Other forms of angina pectoris (principal); D75.1 Secondary polycythemia; E78.2 Mixed hyperlipidemia; I10 Essential (primary) hypertension
CPT/HCPCS: 78452; 93017; A9502; J2785

== ENCOUNTER → 2022-03-30 10:58 | Outpatient (CLI) | payer BC, SELFPAY ==
[2022-03-30 12:05] LABS: Influenza A, PCR Not Detected (NotDetected); Influenza B, PCR Not Detected (NotDetected)
[2022-03-30 13:12] LABS: Coronavirus 19, PCR Detected (NotDetected)
== END ==
PROVIDERS: PCP Family Medicine; Visit Provider Physician Assistant
DX: U07.1 COVID-19 (principal)
CPT/HCPCS: C9803; U0003; U0005